=== PATIENT | female | born 1930 | race Caucasian/White ===

== ENCOUNTER 2016-11-26 08:04 | Inpatient (IN) | payer MEDICARE ==
[2016-11-26] VITALS (19 sets, daily range): BP systolic 141–193; BP diastolic 71–100
[~2016-11-26] VITALS: Ht 162.6 cm; Wt 43.6 kg
[~2016-11-26 08:04] MED LIST: ACET1TAB33 PO; ALPR0.5T6 PO; FAMO20TA5 PO; FLUO40CA9 PO; FLUT9.9S NS; LOSA50TA6 PO; METO25TA2 PO; PROAIR HFA8.5 GM IH
--- NOTE | 2016-11-26 08:32 | RAD ---
CT of the head without contrast, 11/26/2016: History: CVA symptoms Comparison is made to a study from 10/01/2016. The patient's head is somewhat rotated. There is mild cerebral atrophy, worse on the left. The ventricles are within normal limits in size. There is no shift of the midline structures. There is no evidence of acute intracranial hemorrhage. Right cerebellar lucencies are unchanged and are compatible with an old infarct. There is a tiny unchanged lucency along the lateral aspect of left basal ganglia compatible with lacunar infarct. There are minimal deep white matter lucencies on the left compatible with chronic ischemic change. IMPRESSION: 1. Chronic findings as described above. 2. No significant change since 10/01/2016. Note: The findings were called to personnel in the [facility] ER at 8:29 AM on 11/26/2016. PQRS Compliance Statement: One or more of the following individualized dose reduction techniques were utilized for this examination: 1. Automated exposure control 2. Adjustment of the mA and/or kV according to patient size 3. Use of iterative reconstruction technique
[2016-11-26 09:08] LABS: BASO % 0 % (0-3); EOS % 2 % (0-3); HEMATOCRIT 34.7 % (36.0-47.0); HEMOGLOBIN 11.7 g/dL (12.0-15.5); LYMPH # 0.7 x10^3/uL (1.0-4.8); LYMPH % 7 % (24-48); MEAN CORPUSCULAR HEMOGLOBIN 31 pg (25-35); MEAN CORPUSCULAR HGB CONC 34 g/dL (31-37); MEAN CORPUSCULAR VOLUME 91 fL (79-100); MONO % 8 % (0-9); NEUT % 83 % (31-73); PLATELET COUNT 207 x10^3/uL (140-400); RED BLOOD COUNT 3.79 x10^6/uL (3.50-5.40); RED CELL DISTRIBUTION WIDTH 12.9 % (11.5-14.5); WHITE BLOOD COUNT 10.5 x10^3/uL (4.0-11.0)
[2016-11-26] MEDS ORDERED: IV NORMAL SALINE 50ML 50 ML IV STA (09:22)
[2016-11-26] MEDS ORDERED: LABETALOL 20 MG/4 ML DISP.SYRIN. IV PRN (09:30)
[2016-11-26] MEDS ORDERED: NICARDIPINE HCL 50 MG in IV NORMAL SALINE 250ML 250 ML IV PRN (09:30)
[2016-11-26] MEDS ORDERED: ALTEPLASE IV ONE ×2 (09:30)
[2016-11-26] MEDS ORDERED: ONDANSETRON PF 4 MG/2 ML VIAL. IV PRN ×2 (09:30→13:45)
[2016-11-26 09:34] LABS: INR 1.4 (0.8-1.1); PROTHROMBIN TIME PATIENT 16.3 SEC (11.7-14.0)
[2016-11-26 09:38] LABS: ALBUMIN 3.1 g/dL (3.4-5.0); ALBUMIN/GLOBULIN RATIO 0.9 (1.0-1.7); CALCIUM 8.8 mg/dL (8.5-10.1); GFR 52.4; POTASSIUM 3.4 mmol/L (3.5-5.1); TOTAL BILIRUBIN 0.8 mg/dL (0.2-1.0); TOTAL PROTEIN 6.4 g/dL (6.4-8.2)
--- NOTE | 2016-11-26 10:20 | EKG ---
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
--- NOTE | 2016-11-26 10:36 | PHYS DOC ---
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 Patient came down for breakfast from the long term and suddenly dropped a cup with her left hand in the long term staff noticed that she was not looking to the left or not moving the left side of her body. Patient is unable to provide any history. There is not been any known trauma. At this point, the family is unsure what medications she is taking. [] Review of Systems Review of Systems Constitutional: Denies fever or chills [] Eyes: Denies change in visual acuity, redness, or eye pain [] HENT: Denies nasal congestion or sore throat [] Respiratory: Denies cough or shortness of breath [] Cardiovascular: No additional information not addressed in HPI [] GI: Denies abdominal pain, nausea, vomiting, bloody stools or diarrhea [] : Denies dysuria or hematuria [] Musculoskeletal: Denies back pain or joint pain [] Integument: Denies rash or skin lesions [] Neurologic: Per history of present illness [] Endocrine: Denies polyuria or polydipsia [] Current Medications Current Medications Current Medications Medications (Trade) Dose Ordered Sig/Dane Start Time Stop Time Status Last Admin Dose Admin Alteplase, Recombinant 0 ml @ 38.2 mls/hr 1X ONCE 11/26/16 09:30 11/26/16 09:31 DC 11/26/16 09:51 38.2 MLS/HR Labetalol HCl 10 mg 10 mg PRN Q10MIN PRN 11/26/16 09:30 11/26/16 12:15 10 MG Nicardipine HCl/ Sodium Chloride (Cardene/Iv Sodium Chloride 0.9% 250ml) 270 ml @ 27 mls/hr CONT PRN PRN 11/26/16 09:30 Ondansetron HCl (Zofran) 4 mg PRN Q8HRS PRN 11/26/16 09:30 11/27/16 09:29 Sodium Chloride (Iv Sodium Chloride 0.9% 50ml) 50 ml @ 25 mls/min ONCE STAT 11/26/16 09:22 11/26/16 09:33 DC 11/26/16 09:51 25 MLS/MIN Allergies Allergies Allergies Coded Allergies Type Severity Reaction Last Updated Verified Cephalosporins Allergy Intermediate 09/29/16 Yes Penicillins Allergy Intermediate 09/29/16 Yes Sulfa (Sulfonamide Antibiotics) Allergy Intermediate 09/29/16 Yes celecoxib Allergy Intermediate 09/28/16 Yes egg Allergy Intermediate 09/28/16 Yes hydrocodone Allergy Intermediate Itching 09/28/16 Yes Physical Exam Physical Exam Constitutional: Well developed, well nourished, no acute distress, non-toxic appearance. [] HENT: Normocephalic, atraumatic, bilateral external ears normal, oropharynx moist, no oral exudates, nose normal. [] Eyes: PERRLA, EOMI, conjunctiva normal, no discharge. [] Neck: Normal range of motion, no tenderness, supple, no stridor. [] Cardiovascular:Heart rate regular rhythm, no murmur [] Lungs & Thorax: Bilateral breath sounds clear to auscultation [] Abdomen: Bowel sounds normal, soft, no tenderness, no masses, no pulsatile masses. [] Skin: Warm, dry, no erythema, no rash. [] Back: No tenderness, no CVA tenderness. [] Extremities: No tenderness, no cyanosis, no clubbing, ROM intact, no edema. [] Neurologic: Alert and oriented X 3, normal motor function, normal sensory function, no focal deficits noted. [] Psychologic: Affect normal, judgement normal, mood normal. [] Current Patient Data Vital Signs Vital Signs Date Time Temp Pulse Resp B/P Pulse Ox O2 Delivery O2 Flow Rate FiO2 11/26/16 08:25 97.8 86 20 180/82 96 Room Air 97.8 Lab Values Laboratory Tests Test 11/26/16 09:00 White Blood Count 10.5x10^3/uL (4.0-11.0) Red Blood Count 3.79x10^6/uL (3.50-5.40) Hemoglobin 11.7g/dL (12.0-15.5) L Hematocrit 34.7% (36.0-47.0) L Mean Corpuscular Volume 91fL (79-100) Mean Corpuscular Hemoglobin 31pg (25-35) Mean Corpuscular Hemoglobin Concent 34g/dL (31-37) Red Cell Distribution Width 12.9% (11.5-14.5) Platelet Count 207x10^3/uL (140-400) Neutrophils (%) (Auto) 83% (31-73) H Lymphocytes (%) (Auto) 7% (24-48) L Monocytes (%) (Auto) 8% (0-9) Eosinophils (%) (Auto) 2% (0-3) Basophils (%) (Auto) 0% (0-3) Neutrophils # (Auto) 8.7x10^3uL (1.8-7.7) H Lymphocytes # (Auto) 0.7x10^3/uL (1.0-4.8) L Monocytes # (Auto) 0.8x10^3/uL (0.0-1.1) Eosinophils # (Auto) 0.2x10^3/uL (0.0-0.7) Basophils # (Auto) 0.0x10^3/uL (0.0-0.2) Prothrombin Time 16.3SEC (11.7-14.0) H Prothrombin Time INR 1.4 (0.8-1.1) H PTT 29SEC (24-38) Sodium Level 137mmol/L (136-145) Potassium Level 3.4mmol/L (3.5-5.1) L Chloride Level 97mmol/L (98-107) L Carbon Dioxide Level 31mmol/L (21-32) Anion Gap 9 (6-14) Blood Urea Nitrogen 18mg/dL (7-20) Creatinine 1.0mg/dL (0.6-1.0) Estimated GFR (Cockcroft-Gault) 52.4 BUN/Creatinine Ratio 18 (6-20) Glucose Level 160mg/dL (70-99) H Calcium Level 8.8mg/dL (8.5-10.1) Total Bilirubin 0.8mg/dL (0.2-1.0) Aspartate Amino Transferase (AST) 32U/L (15-37) Alanine Aminotransferase (ALT) 32U/L (14-59) Alkaline Phosphatase 193U/L (46-116) H Total Protein 6.4g/dL (6.4-8.2) Albumin 3.1g/dL (3.4-5.0) L Albumin/Globulin Ratio 0.9 (1.0-1.7) L Laboratory Tests 11/26/16 09:00 Laboratory Tests 11/26/16 09:00 EKG EKG [EKG: Normal sinus rhythm rate of [address]-T changes] Radiology/Procedures Radiology/Procedures [] Impressions: PROCEDURE: HEAD WO CONTRAST CT of the head without contrast, 11/26/2016: History: CVA symptoms Comparison is made to a study from 10/01/2016. The patient's head is somewhat rotated. There is mild cerebral atrophy, worse on the left. The ventricles are within normal limits in size. There is no shift of the midline structures. There is no evidence of acute intracranial hemorrhage. Right cerebellar lucencies are unchanged and are compatible with an old infarct. There is a tiny unchanged lucency along the lateral aspect of left basal ganglia compatible with lacunar infarct. There are minimal deep white matter lucencies on the left compatible with chronic ischemic change. IMPRESSION: 1. Chronic findings as described above. 2. No significant change since 10/01/2016. Course & Med Decision Making Course & Med Decision Making Pertinent Labs and Imaging studies reviewed. (See chart for details) [ED course: Evaluation reveals an 86-year-old female with profound left taye- neglect and hemiparesis. Immediately after arrival I discussed the case with Dr. Kian Fenton and given the fact that she had a recent stroke with such a significant deficit we entertained the thought of transfer to a capable stroke center to perform thrombectomy. I discussed this option with family and they were not in favor of transfer or any sort of an interventional treatment. We then discussed the risk of alteplase and the family was willing to go forward with medical intervention. They were warned that there is a relative contraindication to TPA given the fact that she's had a recent stroke but the family was willing to proceed with the procedure. There was a slight delay in starting the TPA because of the prolonged conversation with the family. CRITICAL CARE time was 30 minutes - time exclusive of any procedures performed. Care included medical management, x-ray/lab interpretation, discussions with the patient and their family as well as appropriate medical consultants. Dragon Disclaimer Dragon Disclaimer This electronic medical record was generated, in whole or in part, using a voice recognition dictation system. Departure Departure Impression: Primary Impression: CVA (cerebral vascular accident) Disposition: 09 ADMITTED INPATIENT Admitting Physician: Reed Gomez Condition: STABLE Referrals: JOE MOY MD (PCP) NIHSS NIHSS Administer stroke scale items in the order listed. Record performance in each category after each subscale exam. Do not go back and change scores. Follow directions provided for each exam technique. Scores should reflect what the patient does, not what the clinician thinks the patient can do. The clinician should record answers while administering the exam and work quickly. Except where indicated, the patient should not be coached (i.e., repeated requests to patient to make a special effort). 1a. Level of Consciousness: The reference investigator must choose a response if a full evaluation is prevented by such obstacles as an endotracheal tube, language barrier, orotracheal trauma/bandages. A 3 is scored only if the patient makes no movement (other than reflexive posturing) in response to noxious stimulation. 0 = Alert; keenly responsive. 1 = Not alert; but arousable by minor stimulation to obey, answer, or respond. 2 = Not alert; requires repeated stimulation to attend, or is obtunded and requires strong or painful stimulation to make movements (not stereotyped). 3 = Responds only with reflex motor or autonomic effects or totally unresponsive, flaccid, and areflexic. 1b. LOC Questions: The patient is asked the month and his/her age. The answer must be correct - there is no partial credit for being close. Aphasic and stuporous patients who do not comprehend the questions will score 2. Patients unable to speak because of endotracheal intubation, orotracheal trauma, severe dysarthria from any cause, language barrier, or any other problem not secondary to aphasia are given a 1. It is important that only the initial answer be graded and that the examiner not "help" the patient with verbal or non-verbal cues. 0 = Answers both questions correctly. 1 = Answers one question correctly. 2 = Answers neither question correctly. 1c. LOC Commands: The patient is asked to open and close the eyes and then to event sales manager and release the non-paretic hand. Substitute another one step command if the hands cannot be used. Credit is given if an unequivocal attempt is made but not completed due to weakness. If the patient does not respond to command, the task should be demonstrated to him or her (pantomime), and the result scored (i.e., follows none, one or two commands). Patients with trauma, amputation, or other physical impediments should be given suitable one-step commands. Only the first attempt is scored. 0 = Performs both tasks correctly. 1 = Performs one task correctly. 2 = Performs neither task correctly. 2. Best Gaze: Only horizontal eye movements will be tested. Voluntary or reflexive (oculocephalic) eye movements will be scored, but caloric testing is not done. If the patient has a conjugate deviation of the eyes that can be overcome by voluntary or reflexive activity, the score will be 1. If a patient has an isolated peripheral nerve paresis (CN III, IV or ), score a 1. Gaze is testable in all aphasic patients. Patients with ocular trauma, bandages, pre-existing blindness, or other disorder of visual acuity or witt should be tested with reflexive movements, and a choice made by the reference investigator. Establishing eye contact and then moving about the patient from side to side will occasionally clarify the presence of a partial gaze palsy. 0 = Normal. 1 = Partial gaze palsy; gaze is abnormal in one or both eyes, but forced deviation or total gaze paresis is not present. 2 = Forced deviation, or total gaze paresis not overcome by the oculocephalic maneuver. Interval: [ ] Baseline [ ] 2 hours post treatment [ ] 24 hours post onset of symptoms 20 minutes [ ] 7-10 days [ ] 3 months [ ] Other ( ) 3. Visual: Visual witt (upper and lower quadrants) are tested by confrontation, using finger counting or visual threat, as appropriate. Patients may be encouraged, but if they look at the side of the moving fingers appropriately, this can be scored as normal. If there is unilateral blindness or enucleation, visual witt in the remaining eye are scored. Score 1 only if a clear-cut asymmetry, including quadrantanopia, is found. If patient is blind from any cause, score 3. Double simultaneous stimulation is performed at this point. If there is extinction, patient receives a 1, and the results are used to respond to item 11. 0 = No visual loss. 1 = Partial hemianopia. 2 = Complete hemianopia. 3 = Bilateral hemianopia (blind including cortical blindness). 4. Facial Palsy: Ask - or use pantomime to encourage - the patient to show teeth or raise eyebrows and close eyes. Score symmetry of grimace in response to noxious stimuli in the poorly responsive or non-comprehending patient. If facial trauma/bandages, orotracheal tube, tape or other physical barriers obscure the face, these should be removed to the extent possible. 0 = Normal symmetrical movements. 1 = Minor paralysis (flattened nasolabial fold, asymmetry on smiling). 2 = Partial paralysis (total or near-total paralysis of lower face). 3 = Complete paralysis of one or both sides (absence of facial movement in the upper and lower face). 5. Motor Arm: The limb is placed in the appropriate position: extend the arms (palms down) 90 degrees (if sitting) or 45 degrees (if supine). Drift is scored if the arm falls before 10 seconds. The aphasic patient is encouraged using urgency in the voice and pantomime, but not noxious stimulation. Each limb is tested in turn, beginning with the non-paretic arm. Only in the case of amputation or joint fusion at the shoulder, the examiner should record the score as untestable (UN), and clearly write the explanation for this choice. 0 = No drift; limb holds 90 (or 45) degrees for full 10 seconds. 1 = Drift; limb holds 90 (or 45) degrees, but drifts down before full 10 seconds ; does not hit bed or other support. 2 = Some effort against gravity; limb cannot get to or maintain (if cued) 90 ( or 45) degrees, drifts down to bed, but has some effort against gravity. 3 = No effort against gravity; limb falls. 4 = No movement. UN = Amputation or joint fusion, explain: 5a. Left Arm 5b. Right Arm 6. Motor Leg: The limb is placed in the appropriate position: hold the leg at 30 degrees (always tested supine). Drift is scored if the leg falls before 5 seconds. The aphasic patient is encouraged using urgency in the voice and pantomime, but not noxious stimulation. Each limb is tested in turn, beginning with the non-paretic leg. Only in the case of amputation or joint fusion at the hip, the examiner should record the score as untestable (UN), and clearly write the explanation for this choice. 0 = No drift; leg holds 30-degree position for full 5 seconds. 1 = Drift; leg falls by the end of the 5-second period but does not hit bed. 2 = Some effort against gravity; leg falls to bed by 5 seconds, but has some effort against gravity. 3 = No effort against gravity; leg falls to bed immediately. 4 = No movement. UN = Amputation or joint fusion, explain: 6a. Left Leg 6b. Right Leg Interval: [ ] Baseline [ ] 2 hours post treatment [ ] 24 hours post onset of symptoms 20 minutes [ ] 7-10 days [ ] 3 months [ ] Other ( ) 7. Limb Ataxia: This item is aimed at finding evidence of a unilateral cerebellar lesion. Test with eyes open. In case of visual defect, ensure testing is done in intact visual field. The fdljzv-[id number] and heel-blanc tests are performed on both sides, and ataxia is scored only if present out of proportion to weakness. Ataxia is absent in the patient who cannot understand or is paralyzed. Only in the case of amputation or joint fusion, the examiner should record the score as untestable (UN), and clearly write the explanation for this choice. In case of blindness, test by having the patient touch nose from extended arm position. 0 = Absent. 1 = Present in one limb. 2 = Present in two limbs. UN = Amputation or joint fusion, explain: 8. Sensory: Sensation or grimace to pinprick when tested, or withdrawal from noxious stimulus in the obtunded or aphasic patient. Only sensory loss attributed to stroke is scored as abnormal and the examiner should test as many body areas (arms [not hands], legs, trunk, face) as needed to accurately check for hemisensory loss. A score of 2, "severe or total sensory loss," should only be given when a severe or total loss of sensation can be clearly demonstrated. Stuporous and aphasic patients will, therefore, probably score 1 or 0. The patient with brainstem stroke who has bilateral loss of sensation is scored 2. If the patient does not respond and is quadriplegic, score 2. Patients in a coma (item 1a=3) are automatically given a 2 on this item. 0 = Normal; no sensory loss. 1 = Isei-ny-sydeskur sensory loss; patient feels pinprick is less sharp or is dull on the affected side; or there is a loss of superficial pain with pinprick , but patient is aware of being touched. 2 = Severe to total sensory loss; patient is not aware of being touched in the face, arm, and leg. 9. Best Language: A great deal of information about comprehension will be obtained during the preceding sections of the examination. For this scale item, the patient is asked to describe what is happening in the attached picture, to name the items on the attached naming sheet and to read from the attached list of sentences. Comprehension is judged from responses here, as well as to all of the commands in the preceding general neurological exam. If visual loss interferes with the tests, ask the patient to identify objects placed in the hand, repeat, and produce speech. The intubated patient should be asked to write. The patient in a coma (item 1a=3) will automatically score 3 on this item. The examiner must choose a score for the patient with stupor or limited cooperation, but a score of 3 should be used only if the patient is mute and follows no one-step commands. 0 = No aphasia; normal. 1 = Llsp-ax-qqrltiel aphasia; some obvious loss of fluency or facility of comprehension, without significant limitation on ideas expressed or form of expression. Reduction of speech and/or comprehension, however, makes conversation about provided materials difficult or impossible. For example, in conversation about provided materials, examiner can identify picture or naming card content from patient's response. 2 = Severe aphasia; all communication is through fragmentary expression; great need for inference, questioning, and guessing by the listener. Range of information that can be exchanged is limited; listener carries burden of communication. Examiner cannot identify materials provided from patient response. 3 = Mute, global aphasia; no usable speech or auditory comprehension. 10. Dysarthria: If patient is thought to be normal, an adequate sample of speech must be obtained by asking patient to read or repeat words from the attached list. If the patient has severe aphasia, the clarity of articulation of spontaneous speech can be rated. Only if the patient is intubated or has other physical barriers to producing speech, the examiner should record the score as untestable (UN), and clearly write an explanation for this choice. Do not tell the patient why he or she is being tested. 0 = Normal. 1 = Kifw-yx-bjgjwlot dysarthria; patient slurs at least some words and, at worst , can be understood with some difficulty. 2 = Severe dysarthria; patient's speech is so slurred as to be unintelligible in the absence of or out of proportion to any dysphasia, or is mute/anarthric. UN = Intubated or other physical barrier, explain: Interval: [ ] Baseline [ ] 2 hours post treatment [ ] 24 hours post onset of symptoms 20 minutes [ ] 7-10 days [ ] 3 months [ ] Other ( ) 11. Extinction and Inattention (formerly Neglect): Sufficient information to identify neglect may be obtained during the prior testing. If the patient has a severe visual loss preventing visual double simultaneous stimulation, and the cutaneous stimuli are normal, the score is normal. If the patient has aphasia but does appear to attend to both sides, the score is normal. The presence of visual spatial neglect or anosagnosia may also be taken as evidence of abnormality. Since the abnormality is scored only if present, the item is never untestable. 0 = No abnormality. 1 = Visual, tactile, auditory, spatial, or personal inattention or extinction to bilateral simultaneous stimulation in one of the sensory modalities. 2 = Profound taye-inattention or extinction to more than one modality; does not recognize own hand or orients to only one side of space. Problem Qualifiers Primary Impression: CVA (cerebral vascular accident) CVA mechanism: embolism Precerebral and cerebral artery: middle cerebral artery Laterality of affected vessel: right Qualified Code: I63.411 - Cerebral infarction due to embolism of right middle cerebral artery MAYE SQUIRES DO Nov 26, 2016 10:36
[2016-11-26] MEDS ORDERED: MORPHINE SULFATE 2 MG/ML DISP.SYRIN. IV PRN (12:15)
--- NOTE | 2016-11-26 13:48 | PDOC1 ---
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 pt is seen in ICU, APHasia and not follow any commands. as per DOPA, pt's slurry speech was much better recently, able to walk with a walker, and from last stroke with right hand some rigidy and left side mild weakness was resolved. Patient came down for breakfast from the [facility] and suddenly dropped a cup with her left hand in the [facility] staff noticed that she was not looking to the left or not moving the left side of her body. Patient is unable to provide any history. There is not been any known trauma. At this point, the family is unsure what medications she is taking. [] Pt got TPA in ER. Past Medical History Cardiovascular: HTN, Hyperlipidemia CENTRAL NERVOUS SYSTEM: CVA Heme/Onc: Cancer Endocrine: Diabetes Past Surgical History Past Surgical History: Cholecystectomy, Hysterectomy, Colon Resection Family History Family History: Hypertension Social History Smoke: No ALCOHOL: none Drugs: None Current Problem List Problem List Problems Medical Problems: (1) CVA (cerebral vascular accident) Status: Acute Current Medications Current Medications Current Medications Medications (Trade) Dose Ordered Sig/Dane Start Time Stop Time Status Last Admin Dose Admin Alteplase, Recombinant 0 ml @ 38.2 mls/hr 1X ONCE 11/26/16 09:30 11/26/16 09:31 DC 11/26/16 09:51 38.2 MLS/HR Labetalol HCl 10 mg 10 mg PRN Q10MIN PRN 11/26/16 09:30 11/26/16 12:15 10 MG Morphine Sulfate 2 mg PRN Q2HR PRN 11/26/16 12:15 11/26/16 12:32 2 MG Nicardipine HCl/ Sodium Chloride (Cardene/Iv Sodium Chloride 0.9% 250ml) 270 ml @ 27 mls/hr CONT PRN PRN 11/26/16 09:30 Ondansetron HCl (Zofran) 4 mg PRN Q8HRS PRN 11/26/16 09:30 11/27/16 09:29 Sodium Chloride (Iv Sodium Chloride 0.9% 50ml) 50 ml @ 25 mls/min ONCE STAT 11/26/16 09:22 11/26/16 09:33 DC 11/26/16 09:51 25 MLS/MIN Allergies Allergies Allergies Coded Allergies Type Severity Reaction Last Updated Verified Cephalosporins Allergy Intermediate 09/29/16 Yes Penicillins Allergy Intermediate 09/29/16 Yes Sulfa (Sulfonamide Antibiotics) Allergy Intermediate 09/29/16 Yes celecoxib Allergy Intermediate 09/28/16 Yes egg Allergy Intermediate 09/28/16 Yes hydrocodone Allergy Intermediate Itching 09/28/16 Yes ROS Review of System CONSTITUTIONAL: No fever or chills EYES: No recent changes SKIN: No rash or itching CARDIOVASCULAR: No chest pain, syncope, palpitations, or edema RESPIRATORY: No SOB or cough GASTROINTESTINAL: No nausea, vomiting or abdominal pain NEUROLOGICAL: No headaches or weakness ENDOCRINE: No cold or heat intolerance GENITOURINARY: No urgency or frequency of urination MUSCULOSKELETAL: No back pain or joint pain LYMPHATICS: No enlarged lymph nodes PSYCHIATRIC: No anxiety or depression Physical Exam Physical Exam GEN.: No apparent distress. Alert , awake, not talk or answer questions nor follow commands. HEENT: Head is normocephalic, atraumatic NECK: Supple. LUNGS: Clear to auscultation. HEART: RRR, S1, S2 present. Peripheral pulses intact ABDOMEN: Soft, nontender. Positive bowel sounds. EXTREMITIES: Without any cyanosis. left side flaccid, can wig her bl toes. NEUROLOGIC: not talk nor follow commands PSYCHIATRIC: Normal affect, normal mood. SKIN: No ulcerations Vitals Vitals Vital Signs Date Time Temp Pulse Resp B/P Pulse Ox O2 Delivery O2 Flow Rate FiO2 11/26/16 13:00 96 151/77 94 Room Air 11/26/16 11:00 98.6 98.6 11/26/16 08:25 20 Labs Labs Laboratory Tests Test 11/26/16 09:00 White Blood Count 10.5x10^3/uL (4.0-11.0) Red Blood Count 3.79x10^6/uL (3.50-5.40) Hemoglobin 11.7g/dL (12.0-15.5) Hematocrit 34.7% (36.0-47.0) Mean Corpuscular Volume 91fL (79-100) Mean Corpuscular Hemoglobin 31pg (25-35) Mean Corpuscular Hemoglobin Concent 34g/dL (31-37) Red Cell Distribution Width 12.9% (11.5-14.5) Platelet Count 207x10^3/uL (140-400) Neutrophils (%) (Auto) 83% (31-73) Lymphocytes (%) (Auto) 7% (24-48) Monocytes (%) (Auto) 8% (0-9) Eosinophils (%) (Auto) 2% (0-3) Basophils (%) (Auto) 0% (0-3) Neutrophils # (Auto) 8.7x10^3uL (1.8-7.7) Lymphocytes # (Auto) 0.7x10^3/uL (1.0-4.8) Monocytes # (Auto) 0.8x10^3/uL (0.0-1.1) Eosinophils # (Auto) 0.2x10^3/uL (0.0-0.7) Basophils # (Auto) 0.0x10^3/uL (0.0-0.2) Prothrombin Time 16.3SEC (11.7-14.0) Prothromb Time International Ratio 1.4 (0.8-1.1) Activated Partial Thromboplast Time 29SEC (24-38) Sodium Level 137mmol/L (136-145) Potassium Level 3.4mmol/L (3.5-5.1) Chloride Level 97mmol/L (98-107) Carbon Dioxide Level 31mmol/L (21-32) Anion Gap 9 (6-14) Blood Urea Nitrogen 18mg/dL (7-20) Creatinine 1.0mg/dL (0.6-1.0) Estimated GFR (Cockcroft-Gault) 52.4 BUN/Creatinine Ratio 18 (6-20) Glucose Level 160mg/dL (70-99) Calcium Level 8.8mg/dL (8.5-10.1) Total Bilirubin 0.8mg/dL (0.2-1.0) Aspartate Amino Transf (AST/SGOT) 32U/L (15-37) Alanine Aminotransferase (ALT/SGPT) 32U/L (14-59) Alkaline Phosphatase 193U/L (46-116) Total Protein 6.4g/dL (6.4-8.2) Albumin 3.1g/dL (3.4-5.0) Albumin/Globulin Ratio 0.9 (1.0-1.7) Laboratory Tests Test 11/26/16 09:00 White Blood Count 10.5x10^3/uL (4.0-11.0) Red Blood Count 3.79x10^6/uL (3.50-5.40) Hemoglobin 11.7g/dL (12.0-15.5) Hematocrit 34.7% (36.0-47.0) Mean Corpuscular Volume 91fL (79-100) Mean Corpuscular Hemoglobin 31pg (25-35) Mean Corpuscular Hemoglobin Concent 34g/dL (31-37) Red Cell Distribution Width 12.9% (11.5-14.5) Platelet Count 207x10^3/uL (140-400) Neutrophils (%) (Auto) 83% (31-73) Lymphocytes (%) (Auto) 7% (24-48) Monocytes (%) (Auto) 8% (0-9) Eosinophils (%) (Auto) 2% (0-3) Basophils (%) (Auto) 0% (0-3) Neutrophils # (Auto) 8.7x10^3uL (1.8-7.7) Lymphocytes # (Auto) 0.7x10^3/uL (1.0-4.8) Monocytes # (Auto) 0.8x10^3/uL (0.0-1.1) Eosinophils # (Auto) 0.2x10^3/uL (0.0-0.7) Basophils # (Auto) 0.0x10^3/uL (0.0-0.2) Prothrombin Time 16.3SEC (11.7-14.0) Prothromb Time International Ratio 1.4 (0.8-1.1) Activated Partial Thromboplast Time 29SEC (24-38) Sodium Level 137mmol/L (136-145) Potassium Level 3.4mmol/L (3.5-5.1) Chloride Level 97mmol/L (98-107) Carbon Dioxide Level 31mmol/L (21-32) Anion Gap 9 (6-14) Blood Urea Nitrogen 18mg/dL (7-20) Creatinine 1.0mg/dL (0.6-1.0) Estimated GFR (Cockcroft-Gault) 52.4 BUN/Creatinine Ratio 18 (6-20) Glucose Level 160mg/dL (70-99) Calcium Level 8.8mg/dL (8.5-10.1) Total Bilirubin 0.8mg/dL (0.2-1.0) Aspartate Amino Transf (AST/SGOT) 32U/L (15-37) Alanine Aminotransferase (ALT/SGPT) 32U/L (14-59) Alkaline Phosphatase 193U/L (46-116) Total Protein 6.4g/dL (6.4-8.2) Albumin 3.1g/dL (3.4-5.0) Albumin/Globulin Ratio 0.9 (1.0-1.7) VTE Prophylaxis Ordered VTE Prophylaxis Devices: Yes VTE Pharmacological Prophylaxi: No Assessment/Plan Assessment/Plan 1. acute left side weakness with aphasia, 2/2 acute stroke likely 2. 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 HTN 4. gerd 5. migraines 6. mild malnutrition 7. hypokalemia plan: 1. neuro consult 2. brain MRI, echo, carotid US 3. keep BP <160/100 4. swallow eval 5. replete K npo for now ivf gi ppx ptot KAYKAY SHORE MD Nov 26, 2016 13:47
--- NOTE | 2016-11-26 14:40 | ACF ---
Admission Forms Criteria NEUROLOGY GRG Clinical Indications for Admission to Inpatient Care (Place ' X' for any and all applicable criteria): Hospital admission is needed for appropriate care of the patient because of ANY ONE of the following: [ ]I. New-onset or worsening altered mental status remaining after emergency or observation level care (as appropriate) (9)(10)(11) [ ]II. Severe TECHNOLOGY MANAGER infections or inflammatory conditions, including ANY ONE of the following(1)(2)(3): [ ]a) Intracranial abscess [ ]b) Spinal abscess or myelitis [ ]c) Tuberculous or other nonbacterial, nonviral TECHNOLOGY MANAGER infection(8) [ ]III. Encephalitis(1)(2)(3) [ ]IV. Status epilepticus or repetitive seizures not controlled with emergent treatment [A] (7)(8) [ ]V. Transient alteration in consciousness with high-risk etiology; examples include (12)(13): [ ]a) Cardiovascular source [ ]b) Cataplexy [ ]. Cerebral aneurysm requiring ANY ONE of the following(14): [ ]a) IV antihypertensives or vasoactive agents [ ]b) Sedation and analgesia for suspected leak [ ]c) Need for external ventricular drainage and cerebral perfusion pressure monitoring [ ]d) Emergent evaluation to determine need for surgical clipping or endovascular coiling by interventional radiology. If surgery is required ( Also use Craniotomy, Supratentorial, for Surgery of Bleeding Intracranial Aneurysm (for bleeding aneurysm) or Craniotomy, Supratentorial (for nonbleeding aneurysm) as appropriate. [ ]VII. Altered mental status that is severe or persistent(16) [ ]VIII New-onset severe neurologic findings requiring inpatient care; examples include: [ ]a) Papilledema [ ]b) Cerebral edema [ ]c) Mass effect on imaging [X]IX. New-onset severe neurologic symptom requiring inpatient care indicated by ANY ONE of the following: [X]a) Aphasia(15) [ ]b) Weakness (grade 3 or less) [ ]c) Paralysis (eg, hemiplegia) [ ]d) Spasticity(16) [ ]e) Ataxia(17) [ ]f) Amnesia(18) [ ]g) Involuntary movements(19) [ ]h) Vertigo [ ]i) Other severe neurologic symptom not treatable at alternative level of care (eg, observation care) [ ]X. Guillain-Stilwell syndrome(20) [ ]XI. Myasthenia gravis crisis or inpatient monitoring need as indicated by ANY ONE of the following(21): [ ]a) Inadequate airway protection [ ]b) Respiratory insufficiency requiring intubation or inpatient. monitoring [ ]c) Progressive dysphagia with failure to thrive [ ]d) Intensive treatment (eg, course of plasmapheresis) with inadequate outpatient situation to monitor patients status [ ]XII. Multiple sclerosis or other acute demyelinating disease requiring inpatient care as indicated by ANY ONE of the following (22)(23): [ ]a) Acute severe deterioration requiring inpatient treatment (eg, IV steroids, plasmapheresis, close observation) [ ]b) Acute complication requiring inpatient care (eg, sepsis, severe decubitus, aspiration) [ ]XIII. Intracranial hypertension (eg, pseudotumor cerebri) requiring inpatient care (eg, acute visual loss, inadequate oral intake) (24) [ ]XIV.Parkinson disease requiring inpatient care (Also use Optimal Recovery Care Criteria or General Recovery Criteria as appropriate) indicated by ANY ONE of the following(25): [ ]a) Infection (eg, aspiration pneumonia) not treatable at alternative level of care [ ]b) Volume depletion not responsive to emergency and observation care treatment (as appropriate) [ ]c) Life-threatening agitation or psychotic behavior not treatable on emergency, observation care, or alternative level (eg, residential) basis [ ]d) Severe medication withdrawal effects (eg, freezing, neuroleptic malignant syndrome) not responsive to emergency and observation care treatment (as appropriate) [ ]e) Other severe manifestation not treatable at alternative level of care [ ]XV.Amyotrophic lateral sclerosis with inpatient care needs as indicated by ANY ONE of the following(26): [ ]a) Acute complications requiring inpatient care (Use Optimal Recovery Care Criteria or General Recovery Criteria as appropriate); examples include: [ ]i) Aspiration pneumonia [ ]ii) Sepsis [ ]b) Dehydration or hypovolemia (not responsive to emergency and observation care treatment as appropriate) AND artificial support desired [ ]c) Inadequate airway protection AND artificial support desired [ ]d) Severe ventilatory insufficiency AND artificial support desired [ ]XVI.Severe myopathy, neuropathy, or other neuromuscular disease as indicated by ANY ONE of the following: [ ]a) New-onset severe diffuse weakness (eg, strength 3/5 or less) [ ]b) Severe dysphagia [ ]c) Dyspnea at rest or with minimal exertion (new) [ ]d) Inadequate airway protection [ ]e) Inadequate ventilation as indicated by ANY ONE of the following : [ ]i) Partial pressure of carbon dioxide greater than 44 mm Hg (5.9 kPa) (new) [ ]ii) Reduced peak expiratory flow rate (new) [ ]iii) Vital capacity less than 50% of predicted ( less than 15 mL/kg) [ ]iv) Peak inspiratory force less negative than -30 cm H20 (-2942 Pa) [ ]XVII.Complications of congenital or degenerative disease (eg, infection, seizures, dehydration, injury) not responsive to emergency and observation care treatment (as appropriate ) [C](16)(29)(30) [ ]XVIII.Suspected or confirmed nerve or muscle toxic injury, including ANY ONE of the following: [ ]a) Rhabdomyolysis(31) [ ]b) Botulism(32) [ ]c) Other severe toxin-induced sign or symptom [ ]XIX. Neurologic trauma requiring inpatient treatment (medical) indicated by ANY ONE of the following(33)(34): [ ]a) Vital signs or neurologic signs more frequently than every 4 hours [ ]b) Hyperosmolar therapy [ ]c) Respiratory monitoring [ ]d) Intracranial pressure monitoring and treatment [ ]e) Stabilization and immobilization device placement (eg, braces, body jacket) [ ]f) Intubation & mechanical ventilation for airway protection or therapeutic hyperventilation [ ]g) Other treatment or monitoring needed that requires inpatient level of care [ ]XX.Complications of neurologic devices (eg, ventricular shunt, neurostimulator) requiring ANY ONE of the following(35)(36): [ ]a) IV antibiotics with monitoring while awaiting culture results [ ]b) Monitoring for hydrocephalus [ ]XXI Vasculitis with ANY ONE of the following(4)(5): [ ]a) Altered mental status [ ]b) Psychosis [ ]c) Seizures [ ]XXII. Neurology condition and ALL of the following: [ ]a) Symptom or finding for which emergency and observation care have failed or are not considered appropriate (Use General Criteria: Observation Care as appropriate) [ ]b) Presence of ANY ONE of the following: [ ]i) A General Admission Criteria [ ]ii A Pediatric General Admission Criteria The original [facility] content created by Enriqueta Bazzi has been revised. The portions of the content which have been revised are identified through the use of italic text or in bold, and [facility] has neither reviewed nor approved the modified material. All other unmodified content is copyright [facility] Please see references footnoted in the original [facility] edition 2016 Admission Criteria Met?: Yes NOEMY ANDERSON Nov 26, 2016 14:40
[2016-11-26] MEDS: AA 3%/ELECTROLYTE-TPN SOLN/GLY 1,000 ML IV SCH (16:02)
[2016-11-26] MEDS: PANTOPRAZOLE IV PUSH 40 MG VIAL. IVP SCH (16:03)
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
--- NOTE | 2016-11-26 16:34 | CARD ---
APPROVED REPORT EXAM: Two-dimensional and M-mode echocardiogram with Doppler and color Doppler. Other Information Quality : GoodHR: 102bpm Rhythm : Tachycardia INDICATION Stroke 2D DIMENSIONS Left Atrium(2D)3.7 (1.6-4.0cm)IVSd1.0 (0.7-1.1cm) Aortic Root(2D)2.6 (2.0-3.7cm)LVDd3.7 (3.9-5.9cm) LVOT Diameter2.2 (1.8-2.4cm)PWd1.0 (0.7-1.1cm) LVDs2.3 (2.5-4.0cm)FS (%) 38.7 % SV40.7 mlLVEF(%)70.0 (>50%) Aortic Valve AoV Peak Sarabjit.161.2cm/sAoV VTI24.6cm AO Peak GR.10.4mmHgLVOT Peak Sarabjit.97.9cm/s AO Mean GR.4mmHgAVA (VMAX)2.30cm2 Mitral Valve MV E Axreknol11.3cm/sMV E Peak Gr.3mmHg MV DECEL [id number] A Mtsqqctn916.7cm/s MV E Mean Gr.1mmHgE/A Ratio0.6 MV A [id number] Pulmonary Valve PV Peak Mfwkqhzv988.6cm/s Pulmonary Vein S1 Xhmdjdkg59.8cm/sD2 Mcfilqjb13.9cm/s PVa [id number] LEFT VENTRICLE The left ventricle is normal size. There is normal left ventricular wall thickness. The left ventricu lar systolic function is normal and the ejection fraction is within normal range.The Ejection Fractio n is 65-70%. There is grossly normal LV segmental wall motion. Transmitral Doppler flow pattern is Gr fara I-abnormal relaxation pattern. No left ventricle thrombus noted on this study. There is no ventri cular septal defect visualized. RIGHT VENTRICLE The right ventricle is normal size. There is normal right ventricular wall thickness. The right ventr icular systolic function is normal. ATRIA The left atrium is mildly dilated. The right atrium size is normal. Injection of bubbles documented n o interatrial shunt. AORTIC VALVE The aortic valve is moderately calcified. Doppler and Color Flow revealed no significant aortic regur gitation. There is no significant aortic valvular stenosis. MITRAL VALVE The mitral valve leaflets are thickened. There is no evidence of mitral valve prolapse. There is no m itral valve stenosis. Doppler and Color Flow revealed no mitral valve regurgitation noted. TRICUSPID VALVE The tricuspid valve is normal in structure and function. Doppler and Color Flow revealed no tricuspid valve regurgitation noted. There is no tricuspid valve prolapse or vegetation. PULMONIC VALVE Doppler and Color Flow revealed no pulmonic valvular regurgitation. There is no pulmonic valvular elba nosis. GREAT VESSELS The aortic root is normal in size. The ascending aorta is normal in size. The IVC is normal in size a nd collapses >50% with inspiration. PERICARDIAL EFFUSION There is no evidence of significant pericardial effusion. Critical Notification Critical Value: No <Conclusion> The left ventricular systolic function is normal and the ejection fraction is within normal range.The Ejection Fraction is 65-70%. There is grossly normal LV segmental wall motion. Injection of bubbles documented no interatrial shunt.
--- NOTE | 2016-11-26 16:39 | RAD ---
INDICATION: Stroke COMPARISON: 09/28/2016 TECHNIQUE: Color, grayscale and doppler ultrasound images obtained of the carotid system bilaterally. Percent stenosis is estimated using criteria that correlates with NASCET methodology. FINDINGS: Peak systolic velocities are as follows in cm/s: Right Carotid System: CCA: 47 ICA: 80 ECA: 104 ICA/CCA Ratio 1.7 Left Carotid System: CCA: 77 ICA: 91 ECA: 101 ICA/CCA Ratio 1.2 Vertebral arteries are antegrade bilaterally. Scattered calcified plaque is seen bilaterally. IMPRESSION: 1. No hemodynamically significant stenosis of the internal carotid arteries bilaterally. 2. The patient does have moderate mixed plaque bilaterally.
[2016-11-27] VITALS (9 sets, daily range): BP systolic 186–205; BP diastolic 96–117
--- NOTE | 2016-11-27 08:08 | PDOC ---
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, field cut, but gaze palsy better Prior bilateral strokes Plan Await MRI of the brain DNR Tests, echocardiogram and carotid Dopplers, were repeated from 2 months ago, results unchanged Transfer to floor if MRI shows no hemorrhage Rehabilitation modalities Family is deciding about whether she should have a PEG Otherwise aim for comfort care Subjective None Objective Vital Signs Date Time Temp Pulse Resp B/P Pulse Ox O2 Delivery O2 Flow Rate FiO2 11/27/16 06:00 120 22 205/98 98 Venturi Mask 11/27/16 04:02 99.7 99.7 11/27/16 00:00 2.0 Intake and Output 11/27/16 07:00 Intake Total 88.2 ml Balance 88.2 ml Intake Oral 0 ml IV Total 88.2 ml # Voids 3 PHYSICAL EXAM Nonverbal, does not follow commands, eyes closed PERRL. EOMI. CN: Left central facial weakness. Muscle tone: Increased on right, decreased on left Muscle strength: Left hemiplegia, moves the right side a little bit DTR: 2+ Plantar reflex: Extensor Gait: not examined in bed. Sensory exam: no abnormal findings. No cerebellar signs elicited. Review of Relevant I have reviewed the following items francisca (where applicable) has been applied. Labs Laboratory Tests Test 11/26/16 09:00 11/26/16 17:15 White Blood Count 10.5x10^3/uL (4.0-11.0) Red Blood Count 3.79x10^6/uL (3.50-5.40) Hemoglobin 11.7g/dL (12.0-15.5) Hematocrit 34.7% (36.0-47.0) Mean Corpuscular Volume 91fL (79-100) Mean Corpuscular Hemoglobin 31pg (25-35) Mean Corpuscular Hemoglobin Concent 34g/dL (31-37) Red Cell Distribution Width 12.9% (11.5-14.5) Platelet Count 207x10^3/uL (140-400) Neutrophils (%) (Auto) 83% (31-73) Lymphocytes (%) (Auto) 7% (24-48) Monocytes (%) (Auto) 8% (0-9) Eosinophils (%) (Auto) 2% (0-3) Basophils (%) (Auto) 0% (0-3) Neutrophils # (Auto) 8.7x10^3uL (1.8-7.7) Lymphocytes # (Auto) 0.7x10^3/uL (1.0-4.8) Monocytes # (Auto) 0.8x10^3/uL (0.0-1.1) Eosinophils # (Auto) 0.2x10^3/uL (0.0-0.7) Basophils # (Auto) 0.0x10^3/uL (0.0-0.2) Prothrombin Time 16.3SEC (11.7-14.0) Prothromb Time International Ratio 1.4 (0.8-1.1) Activated Partial Thromboplast Time 29SEC (24-38) Sodium Level 137mmol/L (136-145) Potassium Level 3.4mmol/L (3.5-5.1) Chloride Level 97mmol/L (98-107) Carbon Dioxide Level 31mmol/L (21-32) Anion Gap 9 (6-14) Blood Urea Nitrogen 18mg/dL (7-20) Creatinine 1.0mg/dL (0.6-1.0) Estimated GFR (Cockcroft-Gault) 52.4 BUN/Creatinine Ratio 18 (6-20) Glucose Level 160mg/dL (70-99) Calcium Level 8.8mg/dL (8.5-10.1) Total Bilirubin 0.8mg/dL (0.2-1.0) Aspartate Amino Transf (AST/SGOT) 32U/L (15-37) Alanine Aminotransferase (ALT/SGPT) 32U/L (14-59) Alkaline Phosphatase 193U/L (46-116) Total Protein 6.4g/dL (6.4-8.2) Albumin 3.1g/dL (3.4-5.0) Albumin/Globulin Ratio 0.9 (1.0-1.7) Nasal Screen MRSA (PCR) Negative (Negative) Laboratory Tests Test 11/26/16 09:00 11/26/16 17:15 White Blood Count 10.5x10^3/uL (4.0-11.0) Red Blood Count 3.79x10^6/uL (3.50-5.40) Hemoglobin 11.7g/dL (12.0-15.5) Hematocrit 34.7% (36.0-47.0) Mean Corpuscular Volume 91fL (79-100) Mean Corpuscular Hemoglobin 31pg (25-35) Mean Corpuscular Hemoglobin Concent 34g/dL (31-37) Red Cell Distribution Width 12.9% (11.5-14.5) Platelet Count 207x10^3/uL (140-400) Neutrophils (%) (Auto) 83% (31-73) Lymphocytes (%) (Auto) 7% (24-48) Monocytes (%) (Auto) 8% (0-9) Eosinophils (%) (Auto) 2% (0-3) Basophils (%) (Auto) 0% (0-3) Neutrophils # (Auto) 8.7x10^3uL (1.8-7.7) Lymphocytes # (Auto) 0.7x10^3/uL (1.0-4.8) Monocytes # (Auto) 0.8x10^3/uL (0.0-1.1) Eosinophils # (Auto) 0.2x10^3/uL (0.0-0.7) Basophils # (Auto) 0.0x10^3/uL (0.0-0.2) Prothrombin Time 16.3SEC (11.7-14.0) Prothromb Time International Ratio 1.4 (0.8-1.1) Activated Partial Thromboplast Time 29SEC (24-38) Sodium Level 137mmol/L (136-145) Potassium Level 3.4mmol/L (3.5-5.1) Chloride Level 97mmol/L (98-107) Carbon Dioxide Level 31mmol/L (21-32) Anion Gap 9 (6-14) Blood Urea Nitrogen 18mg/dL (7-20) Creatinine 1.0mg/dL (0.6-1.0) Estimated GFR (Cockcroft-Gault) 52.4 BUN/Creatinine Ratio 18 (6-20) Glucose Level 160mg/dL (70-99) Calcium Level 8.8mg/dL (8.5-10.1) Total Bilirubin 0.8mg/dL (0.2-1.0) Aspartate Amino Transf (AST/SGOT) 32U/L (15-37) Alanine Aminotransferase (ALT/SGPT) 32U/L (14-59) Alkaline Phosphatase 193U/L (46-116) Total Protein 6.4g/dL (6.4-8.2) Albumin 3.1g/dL (3.4-5.0) Albumin/Globulin Ratio 0.9 (1.0-1.7) Nasal Screen MRSA (PCR) Negative (Negative) Medications Current Medications Alteplase, Recombinant 0 ml @ 0 mls/hr 1X ONCE IV Last administered on 09:50; Start 11/26/16 at 09:30; Stop 11/26/16 at 09:31; Status DC Alteplase, Recombinant 0 ml @ 38.2 mls/hr 1X ONCE IV Last administered on 09:51; Start 11/26/16 at 09:30; Stop 11/26/16 at 09:31; Status DC Sodium Chloride (Iv Sodium Chloride 0.9% 50ml) 50 ml @ 25 mls/min ONCE STAT IV Last administered on 11/26/16 09:51; Start 11/26/16 at 09:22; Stop 11/26/16 at 09:33; Status DC Labetalol HCl 10 mg 10 mg PRN Q10MIN PRN IV HYPERTENSION, SEE COMMENTS Last administered on 11/26/16 12:15; Start 11/26/16 at 09:30 Nicardipine HCl/ Sodium Chloride (Cardene/Iv Sodium Chloride 0.9% 250ml) 270 ml @ 27 mls/hr CONT PRN PRN IV HYPERTENSION, SEE COMMENTS; Start 11/26/16 at 09: 30 Ondansetron HCl (Zofran) 4 mg PRN Q8HRS PRN IV NAUSEA/VOMITING; Start 11/26/16 at 09:30; Stop 11/26/16 at 15:48; Status DC Morphine Sulfate 2 mg PRN Q2HR PRN IV PAIN Last administered on 11/26/16 12:32 ; Start 11/26/16 at 12:15 Pantoprazole Sodium 40 mg 40 mg DAILYAC IVP Last administered on 11/26/16 16: 03; Start 11/26/16 at 14:00 Amino Acids/ Glycerin/ Electrolytes (Procalamine) 1,000 ml @ 60 mls/hr [id number] IV Last administered on 11/26/16t 16:02; Start 11/26/16 at 13:45 Ondansetron HCl (Zofran) 4 mg PRN Q6HRS PRN IV NAUSEA/VOMITING; Start 11/26/16 at 13:45 Active Scripts Active Reported Flonase Allergy Relief (Fluticasone Propionate) 9.9 Ml [place].susp 2 Sprays NS DAILY Prozac (Fluoxetine Hcl) 40 Mg Capsule 1 Cap PO DAILY Proair Hfa Inhaler (Albuterol Sulfate) 8.5 Gm Hfa.aer.ad 2 Puff IH PRN Q4-6HRS Toprol Xl (Metoprolol Succinate) 25 Mg Tab.er.24h 1 Tab PO DAILY Acetaminophen-Cod #3 Tablet (Acetaminophen/Codeine Phosphate) 1 Each Tablet 1 Tab PO AFTRNOON Famotidine 20 Mg Tablet 1 Tab PO AFTRNOON Losartan Potassium 50 Mg Tablet 50 Mg PO DAILY Alprazolam 0.5 Mg Tablet 1 Tab PO BID Vitals/I & O Vital Sign - Last 24 Hours 11/26/16 11/26/16 11/26/16 11/26/16 08:25 09:00 09:30 09:50 Temp 97.8 97.8 Pulse 86 74 76 81 Resp 20 B/P 180/82 157/85 193/88 172/82 Pulse Ox 96 97 97 97 O2 Delivery Room Air Room Air Room Air Room Air 11/26/16 11/26/16 11/26/16 11/26/16 10:02 10:07 10:17 10:27 Pulse 80 78 81 Resp B/P 170/85 164/88 171/79 176/87 Pulse Ox 98 97 97 97 O2 Delivery Room Air Room Air Room Air Room Air 11/26/16 11/26/16 11/26/16 11/26/16 10:32 10:37 11:00 11:15 Temp 98.6 98.6 Pulse 94 Resp 16 B/P 171/88 191/90 141/91 Pulse Ox 98 97 96 O2 Delivery Room Air Room Air Room Air Room Air 11/26/16 11/26/16 11/26/16 11/26/16 11:15 11:30 11:45 12:00 Pulse 94 100 104 104 Resp 16 B/P 188/83 173/87 193/95 185/80 Pulse Ox 95 96 95 95 O2 Delivery Room Air Room Air Room Air Room Air 11/26/16 11/26/1617 11/26/16 12:15 12:15 12:30 12:45 Pulse 112 98 100 Resp 16 18 B/P 193/100 193/95 163/82 158/85 Pulse Ox 94 94 94 O2 Delivery Room Air Room Air Room Air 11/26/16 11/26/16 11/26/16 11/26/16 13:00 14:00 15:00 16:00 Pulse 96 102 102 Resp 16 18 B/P 151/77 143/71 156/74 Pulse Ox 94 95 95 O2 Delivery Room Air Room Air Room Air Room Air 11/26/16 11/26/16 11/26/16 11/26/16 16:00 17:00 18:00 19:00 Temp 98.6 98.6 Pulse 100 106 108 110 Resp 18 16 17 18 B/P 160/80 188/89 173/86 189/100 Pulse Ox 96 96 96 96 O2 Delivery Room Air Room Air Room Air Room Air 11/26/16 11/26/16 11/26/16 11/26/16 20:00 20:00 21:00 22:00 Temp 98.8 98.8 Pulse 110 108 118 Resp 18 18 20 B/P 184/97 182/96 186/95 Pulse Ox 95 94 94 O2 Delivery Room Air Room Air Room Air Nasal Cannula O2 Flow Rate 2.0 11/26/16 11/27/16 11/27/16 11/27/16 23:00 00:00 00:00 01:00 Temp 99.5 99.5 Pulse 118 118 120 Resp B/P 190/99 199/100 198/96 Pulse Ox 95 91 96 O2 Delivery Nasal Cannula Nasal Cannula Nasal Cannula Venturi Mask O2 Flow Rate 2.0 3.0 2.0 11/27/16 11/27/16 11/27/16 11/27/16 02:00 03:00 04:02 04:07 Temp 99.7 99.7 Pulse 120 122 120 Resp B/P 194/104 198/98 197/101 Pulse Ox 93 95 95 O2 Delivery Venturi Mask Venturi Mask Venturi Mask Venturi Mask 11/27/16 11/27/16 05:00 06:00 Pulse 120 120 Resp 22 22 B/P 193/99 205/98 Pulse Ox 95 98 O2 Delivery Venturi Mask Venturi Mask Intake and Output 11/26/16 11/26/16 11/27/16 15:00 23:00 07:00 Intake Total 88.2 ml 0 ml 0 ml Balance 88.2 ml 0 ml 0 ml VALENTÍN RAMACHANDRAN MD Nov 27, 2016 08:08
[2016-11-27 08:19] LABS: CHOLESTEROL/HDL RATIO 2.4
[2016-11-27] MEDS ORDERED: LABETALOL 20 MG/4 ML DISP.SYRIN. IV PRN (09:00)
[2016-11-27] MEDS: PANTOPRAZOLE IV PUSH 40 MG VIAL. IVP SCH (09:56)
[2016-11-27] MEDS: AA 3%/ELECTROLYTE-TPN SOLN/GLY 1,000 ML IV SCH (09:57)
--- NOTE | 2016-11-27 11:56 | RAD ---
PROCEDURE MRI of the brain without contrast 11/27/2016 HISTORY Stroke post tPA. TECHNIQUE Unenhanced T1 weighted sagittal and axial, T2 weighted axial and coronal and FLAIR, gradient echo and diffusion weighted axial images of the brain were obtained. FINDINGS Comparison is made to a CT scan of the head dated 11/26/2016. Additional comparison is made to the patient's previous MRI of the brain dated 10/02/2016. There is generalized parenchymal atrophy. Patchy, confluent and multiple focal areas of abnormally increased signal intensity are seen within the periventricular and subcortical white matter of both cerebral hemispheres on the FLAIR and T2 weighted images consistent with areas of small vessel ischemic disease. Old areas of infarction are seen involving the cerebellum, right greater than left. These measure 2 millimeters to 2.5 centimeters in size. A large wedge-shaped area of restricted diffusion is seen involving portions of the right temporal, occipital and right parietal lobes. This measures 10 x 4.1 x 8.8 centimeters in AP, transverse and craniocaudal dimensions. This is consistent with a right MCA distribution infarct. On the gradient echo images multiple areas of decreased signal intensity are seen within the area of infarction consistent with areas of hemorrhagic transformation. There is surrounding edema and associated mass effect. No midline shift is seen at this time. Several small scattered focal areas of restricted diffusion are seen involving the left parietal lobe which measure 2 to 4 millimeters in size. These are consistent with additional areas of acute ischemia/infarction. There is no surrounding edema or associated mass effect. A 7 millimeter area of restricted diffusion is seen involving the left cerebellar hemisphere, superiorly. This is consistent with an additional area of acute ischemia/infarction. There is no significant surrounding edema or associated mass effect. The paranasal sinuses are essentially clear. There are minimal bilateral mastoid effusions. Diminished arterial flow to the branches of the right middle cerebral artery are seen. IMPRESSION Large area of acute infarction is seen involving the right temporal/occipital/ parietal lobes. Areas of hemorrhagic transformation are seen. There is surrounding edema and associated mass effect without evidence of midline shift. Additional smaller areas of acute ischemia/infarction are seen involving the left cerebellum and left parietal lobe. The patient's nurse was notified of these findings. Electronically signed by: Guido Herndon MD (Nov 27, 2016 11:55:11)
--- NOTE | 2016-11-27 13:15 | PDOC ---
PROGRESS NOTES Chief Complaint Chief Complaint 1. acute left side weakness with aphasia, 2/2 acute stroke likely 2. 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 HTN 4. gerd 5. migraines 6. mild malnutrition 7. hypokalemia plan: 1. neuro consult 2. brain MRI done, bl acute ischemia stroke, large on Rt WITH hemarragic transformation, mass effect wo midline shift. echo, carotid US repeated , neg. 3. keep BP <180/110 4. swallow eval, npo 5. replete K ivf gi ppx ptot History of Present Illness History of Present Illness still not responding to me Vitals Vitals Vital Signs Date Time Temp Pulse Resp B/P Pulse Ox O2 Delivery O2 Flow Rate FiO2 11/27/16 08:00 Venturi Mask 11/27/16 06:00 120 22 205/98 98 11/27/16 04:02 99.7 99.7 11/27/16 00:00 2.0 Physical Exam Physical Exam closing eyes, not waking up for me Heart: Regular rate, Normal S1, Normal S2 Lungs: Clear Abdomen: Normal bowel sounds, Soft Extremities: No clubbing, No cyanosis Skin: No rashes Labs LABS Laboratory Tests Test 11/26/16 17:15 11/27/16 07:30 Nasal Screen MRSA (PCR) Negative (Negative) Triglycerides Level 132mg/dL (0-150) Cholesterol Level 174mg/dL (0-200) LDL Cholesterol, Calculated 75mg/dL (0-100) VLDL Cholesterol, Calculated 26mg/dL (0-40) HDL Cholesterol 73mg/dL (40-60) Cholesterol/HDL Ratio 2.4 Review of Systems Review of Systems no fever, chills, sob or chest pain Assessment and Plan Assessmemt and Plan Problems Medical Problems: (1) Acute CVA (cerebrovascular accident) Status: Acute (2) CVA (cerebral vascular accident) Status: Acute Problems: Comment Review of Relevant I have reviewed the following items francisca (where applicable) has been applied. Labs Laboratory Tests Test 11/26/16 09:00 11/26/16 17:15 11/27/16 07:30 White Blood Count 10.5x10^3/uL (4.0-11.0) Red Blood Count 3.79x10^6/uL (3.50-5.40) Hemoglobin 11.7g/dL (12.0-15.5) Hematocrit 34.7% (36.0-47.0) Mean Corpuscular Volume 91fL (79-100) Mean Corpuscular Hemoglobin 31pg (25-35) Mean Corpuscular Hemoglobin Concent 34g/dL (31-37) Red Cell Distribution Width 12.9% (11.5-14.5) Platelet Count 207x10^3/uL (140-400) Neutrophils (%) (Auto) 83% (31-73) Lymphocytes (%) (Auto) 7% (24-48) Monocytes (%) (Auto) 8% (0-9) Eosinophils (%) (Auto) 2% (0-3) Basophils (%) (Auto) 0% (0-3) Neutrophils # (Auto) 8.7x10^3uL (1.8-7.7) Lymphocytes # (Auto) 0.7x10^3/uL (1.0-4.8) Monocytes # (Auto) 0.8x10^3/uL (0.0-1.1) Eosinophils # (Auto) 0.2x10^3/uL (0.0-0.7) Basophils # (Auto) 0.0x10^3/uL (0.0-0.2) Prothrombin Time 16.3SEC (11.7-14.0) Prothromb Time International Ratio 1.4 (0.8-1.1) Activated Partial Thromboplast Time 29SEC (24-38) Sodium Level 137mmol/L (136-145) Potassium Level 3.4mmol/L (3.5-5.1) Chloride Level 97mmol/L (98-107) Carbon Dioxide Level 31mmol/L (21-32) Anion Gap 9 (6-14) Blood Urea Nitrogen 18mg/dL (7-20) Creatinine 1.0mg/dL (0.6-1.0) Estimated GFR (Cockcroft-Gault) 52.4 BUN/Creatinine Ratio 18 (6-20) Glucose Level 160mg/dL (70-99) Calcium Level 8.8mg/dL (8.5-10.1) Total Bilirubin 0.8mg/dL (0.2-1.0) Aspartate Amino Transf (AST/SGOT) 32U/L (15-37) Alanine Aminotransferase (ALT/SGPT) 32U/L (14-59) Alkaline Phosphatase 193U/L (46-116) Total Protein 6.4g/dL (6.4-8.2) Albumin 3.1g/dL (3.4-5.0) Albumin/Globulin Ratio 0.9 (1.0-1.7) Nasal Screen MRSA (PCR) Negative (Negative) Triglycerides Level 132mg/dL (0-150) Cholesterol Level 174mg/dL (0-200) LDL Cholesterol, Calculated 75mg/dL (0-100) VLDL Cholesterol, Calculated 26mg/dL (0-40) HDL Cholesterol 73mg/dL (40-60) Cholesterol/HDL Ratio 2.4 Laboratory Tests Test 11/26/16 17:15 11/27/16 07:30 Nasal Screen MRSA (PCR) Negative (Negative) Triglycerides Level 132mg/dL (0-150) Cholesterol Level 174mg/dL (0-200) LDL Cholesterol, Calculated 75mg/dL (0-100) VLDL Cholesterol, Calculated 26mg/dL (0-40) HDL Cholesterol 73mg/dL (40-60) Cholesterol/HDL Ratio 2.4 Medications Current Medications Alteplase, Recombinant 0 ml @ 0 mls/hr 1X ONCE IV Last administered on 09:50; Start 11/26/16 at 09:30; Stop 11/26/16 at 09:31; Status DC Alteplase, Recombinant 0 ml @ 38.2 mls/hr 1X ONCE IV Last administered on 09:51; Start 11/26/16 at 09:30; Stop 11/26/16 at 09:31; Status DC Sodium Chloride (Iv Sodium Chloride 0.9% 50ml) 50 ml @ 25 mls/min ONCE STAT IV Last administered on 11/26/16 09:51; Start 11/26/16 at 09:22; Stop 11/26/16 at 09:33; Status DC Labetalol HCl 10 mg 10 mg PRN Q10MIN PRN IV HYPERTENSION, SEE COMMENTS Last administered on 11/26/16 12:15; Start 11/26/16 at 09:30; Stop 11/27/16 at 08:59 ; Status DC Nicardipine HCl/ Sodium Chloride (Cardene/Iv Sodium Chloride 0.9% 250ml) 270 ml @ 27 mls/hr CONT PRN PRN IV HYPERTENSION, SEE COMMENTS; Start 11/26/16 at 09: 30 Ondansetron HCl (Zofran) 4 mg PRN Q8HRS PRN IV NAUSEA/VOMITING; Start 11/26/16 at 09:30; Stop 11/26/16 at 15:48; Status DC Morphine Sulfate 2 mg PRN Q2HR PRN IV PAIN Last administered on 11/26/16 12:32 ; Start 11/26/16 at 12:15 Pantoprazole Sodium 40 mg 40 mg DAILYAC IVP Last administered on 11/27/16 09: 56; Start 11/26/16 at 14:00 Amino Acids/ Glycerin/ Electrolytes (Procalamine) 1,000 ml @ 60 mls/hr [id number] IV Last administered on 11/27/16 09:57; Start 11/26/16 at 13:45 Ondansetron HCl (Zofran) 4 mg PRN Q6HRS PRN IV NAUSEA/VOMITING; Start 11/26/16 at 13:45 Labetalol HCl (Normodyne) 20 mg PRN Q10MIN PRN IV HYPERTENSION, SEE COMMENTS; Start 11/27/16 at 09:00 Active Scripts Active Reported Flonase Allergy Relief (Fluticasone Propionate) 9.9 Ml [place].susp 2 Sprays NS DAILY Prozac (Fluoxetine Hcl) 40 Mg Capsule 1 Cap PO DAILY Proair Hfa Inhaler (Albuterol Sulfate) 8.5 Gm Hfa.aer.ad 2 Puff IH PRN Q4-6HRS Toprol Xl (Metoprolol Succinate) 25 Mg Tab.er.24h 1 Tab PO DAILY Acetaminophen-Cod #3 Tablet (Acetaminophen/Codeine Phosphate) 1 Each Tablet 1 Tab PO AFTRNOON Famotidine 20 Mg Tablet 1 Tab PO AFTRNOON Losartan Potassium 50 Mg Tablet 50 Mg PO DAILY Alprazolam 0.5 Mg Tablet 1 Tab PO BID Vitals/I & O Vital Sign - Last 24 Hours 11/26/16 11/26/16 11/26/16 11/26/16 14:00 15:00 16:00 16:00 Temp 98.6 98.6 Pulse 102 102 100 Resp 16 18 18 B/P 143/71 156/74 160/80 Pulse Ox 95 95 96 O2 Delivery Room Air Room Air Room Air Room Air 11/26/16 11/26/16 11/26/16 11/26/16 17:00 18:00 19:00 20:00 Temp 98.8 98.8 Pulse 106 108 110 110 Resp 18 B/P 188/89 173/86 189/100 184/97 Pulse Ox 96 96 96 95 O2 Delivery Room Air Room Air Room Air Room Air 11/26/16 11/26/16 11/26/16 11/26/16 20:00 21:00 22:00 23:00 Pulse 108 118 118 Resp B/P 182/96 186/95 190/99 Pulse Ox 94 94 95 O2 Delivery Room Air Room Air Nasal Cannula Nasal Cannula O2 Flow Rate 2.0 2.0 11/27/16 11/27/16 11/27/16 11/27/16 00:00 00:00 01:00 02:00 Temp 99.5 99.5 Pulse 118 120 120 Resp B/P 199/100 198/96 194/104 Pulse Ox 91 96 93 O2 Delivery Nasal Cannula Nasal Cannula Venturi Mask Venturi Mask O2 Flow Rate 3.0 2.0 11/27/16 11/27/16 11/27/16 11/27/16 03:00 04:02 04:07 05:00 Temp 99.7 99.7 Pulse 122 120 120 Resp B/P 198/98 197/101 193/99 Pulse Ox 95 95 95 O2 Delivery Venturi Mask Venturi Mask Venturi Mask Venturi Mask 11/27/16 11/27/16 06:00 08:00 Pulse 120 Resp 22 B/P 205/98 Pulse Ox 98 O2 Delivery Venturi Mask Venturi Mask Intake and Output 11/26/16 11/26/16 11/27/16 15:00 23:00 07:00 Intake Total 88.2 ml 0 ml 0 ml Balance 88.2 ml 0 ml 0 ml KAYKAY SHORE MD Nov 27, 2016 13:15
--- NOTE | 2016-11-27 18:32 | PDOC2 ---
PALLIATIVE CARE Palliative Care Note Palliative Care Consult requested by Dr. Fenton to address goals of care Diagnosis: Bilateral CVA; HTN; GERD; recent CVA Patient unresponsive. Oxygen per mask Spoke with conner Kemp/DALE and conner Mathias. They are aware of patient's medical condition per Dr. Fenton's conversation this am. They do not feel she will improve. Patient had told family that she was "ready to go", "done" after she had suffered her mini strokes prior to this admission. They would like to focus on her comfort. Return to [facility] if possible, Discussed financial obligation--payment of room and board --$250/day. Family had been working on plan for her to remain at [facility]. Patient has not wanted a feeding tube and they would like to honor her wishes. 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 Her mary is strong and she is a member of the [employer] in [place]. Her white sugar supervisor of member of her voodoo have been here to visit. Confirmed Code Status: Outside the Hospital DNR/DNI form completed. Spoke with Marleen MATHEW who will assist with discharge plan Plan: Comfort care returning to [facility] with Hospice (no preference in agency) DNR/DNI BRITTNEY MAHMOOD Nov 27, 2016 18:32
[2016-11-28 05:14] LABS: BASO # 0.1 x10^3/uL (0.0-0.2); BASO % 0 % (0-3); EOS % 0 % (0-3); HEMATOCRIT 36.5 % (36.0-47.0); HEMOGLOBIN 11.9 g/dL (12.0-15.5); LYMPH # 0.7 x10^3/uL (1.0-4.8); LYMPH % 4 % (24-48); MEAN CORPUSCULAR HEMOGLOBIN 30 pg (25-35); MEAN CORPUSCULAR HGB CONC 33 g/dL (31-37); MEAN CORPUSCULAR VOLUME 91 fL (79-100); MONO % 7 % (0-9); NEUT % 89 % (31-73); PLATELET COUNT 239 x10^3/uL (140-400); RED BLOOD COUNT 4.02 x10^6/uL (3.50-5.40); RED CELL DISTRIBUTION WIDTH 13.1 % (11.5-14.5); WHITE BLOOD COUNT 18.1 x10^3/uL (4.0-11.0)
[2016-11-28 05:49] LABS: GFR 52.4; POTASSIUM 3.3 mmol/L (3.5-5.1)
[2016-11-28 06:26] LABS: PLT ESTIMATE ADEQUATE (ADEQUATE)
[2016-11-28 07:50] VITALS: BP 154/62
[2016-11-28] MEDS ORDERED: LORAZEPAM INTENSOL 2 MG/ML ORAL.CONC. SL PRN (11:00)
[2016-11-28] MEDS ORDERED: LABETALOL 20 MG/4 ML DISP.SYRIN. IVP PRN (11:00)
[2016-11-28] MEDS ORDERED: SCOPOLAMINE 1.5MG PATCH. TD SCH (11:00)
[2016-11-28] MEDS: PANTOPRAZOLE IV PUSH 40 MG VIAL. IVP SCH (11:06)
[2016-11-28] MEDS: MORPHINE SULFATE 20 MG/ML CONC SOLUTION. SL PRN ×2 (13:29→16:45)
--- NOTE | 2016-11-28 14:31 | PDOC ---
PROGRESS NOTES Chief Complaint Chief Complaint 1. acute left side weakness with aphasia, 2/2 acute stroke likely 2. 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 HTN 4. gerd 5. migraines 6. mild malnutrition 7. hypokalemia plan: 1. neuro consult 2. brain MRI done, bl acute ischemia stroke, large on Rt WITH hemarragic transformation, mass effect wo midline shift. echo, carotid US repeated , neg. 3. keep BP <180/110 4. swallow eval, npo 5. replete K ivf gi ppx ptot History of Present Illness History of Present Illness transferred out of [facility] Aphasic, no response, NPOI Does not follow or responds to family DNR [facility] has accepted but will only take once O2 requirments are less pt still requiring high O2 reqmts, on venti mask PLAN: Check CXR STart hospice bundle including scopolamine patch Procalamine has been dcd from icu dc cardene gtt Only supportive meds for comfort \dw whole family at bedside Vitals Vitals Vital Signs Date Time Temp Pulse Resp B/P Pulse Ox O2 Delivery O2 Flow Rate FiO2 11/28/16 13:29 90 Venturi Mask 9.0 11/28/16 07:50 99.1 72 20 154/62 99.1 Physical Exam Physical Exam closing eyes, not waking up for me Heart: Regular rate, Normal S1, Normal S2 Lungs: Clear Abdomen: Normal bowel sounds, Soft Extremities: No clubbing, No cyanosis Skin: No rashes Labs LABS Laboratory Tests Test 11/28/16 04:25 White Blood Count 18.1x10^3/uL (4.0-11.0) Red Blood Count 4.02x10^6/uL (3.50-5.40) Hemoglobin 11.9g/dL (12.0-15.5) Hematocrit 36.5% (36.0-47.0) Mean Corpuscular Volume 91fL (79-100) Mean Corpuscular Hemoglobin 30pg (25-35) Mean Corpuscular Hemoglobin Concent 33g/dL (31-37) Red Cell Distribution Width 13.1% (11.5-14.5) Platelet Count 239x10^3/uL (140-400) Neutrophils (%) (Auto) 89% (31-73) Lymphocytes (%) (Auto) 4% (24-48) Monocytes (%) (Auto) 7% (0-9) Eosinophils (%) (Auto) 0% (0-3) Basophils (%) (Auto) 0% (0-3) Neutrophils # (Auto) 16.0x10^3uL (1.8-7.7) Lymphocytes # (Auto) 0.7x10^3/uL (1.0-4.8) Monocytes # (Auto) 1.3x10^3/uL (0.0-1.1) Eosinophils # (Auto) 0.0x10^3/uL (0.0-0.7) Basophils # (Auto) 0.1x10^3/uL (0.0-0.2) Segmented Neutrophils % 92% (35-66) Lymphocytes % 3% (24-48) Monocytes % 5% (0-10) Platelet Estimate Adequate (ADEQUATE) Sodium Level 135mmol/L (136-145) Potassium Level 3.3mmol/L (3.5-5.1) Chloride Level 94mmol/L (98-107) Carbon Dioxide Level 29mmol/L (21-32) Anion Gap 12 (6-14) Blood Urea Nitrogen 36mg/dL (7-20) Creatinine 1.0mg/dL (0.6-1.0) Estimated GFR (Cockcroft-Gault) 52.4 Glucose Level 183mg/dL (70-99) Calcium Level 9.0mg/dL (8.5-10.1) Review of Systems Review of Systems cant be obtained, aphasic Assessment and Plan Assessmemt and Plan Problems Medical Problems: (1) Acute CVA (cerebrovascular accident) Status: Acute (2) CVA (cerebral vascular accident) Status: Acute Problems: Comment Review of Relevant I have reviewed the following items francisca (where applicable) has been applied. Labs Laboratory Tests Test 11/26/16 17:15 11/27/16 07:30 11/28/16 04:25 Nasal Screen MRSA (PCR) Negative (Negative) Triglycerides Level 132mg/dL (0-150) Cholesterol Level 174mg/dL (0-200) LDL Cholesterol, Calculated 75mg/dL (0-100) VLDL Cholesterol, Calculated 26mg/dL (0-40) HDL Cholesterol 73mg/dL (40-60) Cholesterol/HDL Ratio 2.4 White Blood Count 18.1x10^3/uL (4.0-11.0) Red Blood Count 4.02x10^6/uL (3.50-5.40) Hemoglobin 11.9g/dL (12.0-15.5) Hematocrit 36.5% (36.0-47.0) Mean Corpuscular Volume 91fL (79-100) Mean Corpuscular Hemoglobin 30pg (25-35) Mean Corpuscular Hemoglobin Concent 33g/dL (31-37) Red Cell Distribution Width 13.1% (11.5-14.5) Platelet Count 239x10^3/uL (140-400) Neutrophils (%) (Auto) 89% (31-73) Lymphocytes (%) (Auto) 4% (24-48) Monocytes (%) (Auto) 7% (0-9) Eosinophils (%) (Auto) 0% (0-3) Basophils (%) (Auto) 0% (0-3) Neutrophils # (Auto) 16.0x10^3uL (1.8-7.7) Lymphocytes # (Auto) 0.7x10^3/uL (1.0-4.8) Monocytes # (Auto) 1.3x10^3/uL (0.0-1.1) Eosinophils # (Auto) 0.0x10^3/uL (0.0-0.7) Basophils # (Auto) 0.1x10^3/uL (0.0-0.2) Segmented Neutrophils % 92% (35-66) Lymphocytes % 3% (24-48) Monocytes % 5% (0-10) Platelet Estimate Adequate (ADEQUATE) Sodium Level 135mmol/L (136-145) Potassium Level 3.3mmol/L (3.5-5.1) Chloride Level 94mmol/L (98-107) Carbon Dioxide Level 29mmol/L (21-32) Anion Gap 12 (6-14) Blood Urea Nitrogen 36mg/dL (7-20) Creatinine 1.0mg/dL (0.6-1.0) Estimated GFR (Cockcroft-Gault) 52.4 Glucose Level 183mg/dL (70-99) Calcium Level 9.0mg/dL (8.5-10.1) Laboratory Tests Test 11/28/16 04:25 White Blood Count 18.1x10^3/uL (4.0-11.0) Red Blood Count 4.02x10^6/uL (3.50-5.40) Hemoglobin 11.9g/dL (12.0-15.5) Hematocrit 36.5% (36.0-47.0) Mean Corpuscular Volume 91fL (79-100) Mean Corpuscular Hemoglobin 30pg (25-35) Mean Corpuscular Hemoglobin Concent 33g/dL (31-37) Red Cell Distribution Width 13.1% (11.5-14.5) Platelet Count 239x10^3/uL (140-400) Neutrophils (%) (Auto) 89% (31-73) Lymphocytes (%) (Auto) 4% (24-48) Monocytes (%) (Auto) 7% (0-9) Eosinophils (%) (Auto) 0% (0-3) Basophils (%) (Auto) 0% (0-3) Neutrophils # (Auto) 16.0x10^3uL (1.8-7.7) Lymphocytes # (Auto) 0.7x10^3/uL (1.0-4.8) Monocytes # (Auto) 1.3x10^3/uL (0.0-1.1) Eosinophils # (Auto) 0.0x10^3/uL (0.0-0.7) Basophils # (Auto) 0.1x10^3/uL (0.0-0.2) Segmented Neutrophils % 92% (35-66) Lymphocytes % 3% (24-48) Monocytes % 5% (0-10) Platelet Estimate Adequate (ADEQUATE) Sodium Level 135mmol/L (136-145) Potassium Level 3.3mmol/L (3.5-5.1) Chloride Level 94mmol/L (98-107) Carbon Dioxide Level 29mmol/L (21-32) Anion Gap 12 (6-14) Blood Urea Nitrogen 36mg/dL (7-20) Creatinine 1.0mg/dL (0.6-1.0) Estimated GFR (Cockcroft-Gault) 52.4 Glucose Level 183mg/dL (70-99) Calcium Level 9.0mg/dL (8.5-10.1) Medications Current Medications Alteplase, Recombinant 0 ml @ 0 mls/hr 1X ONCE IV Last administered on 09:50; Start 11/26/16 at 09:30; Stop 11/26/16 at 09:31; Status DC Alteplase, Recombinant 0 ml @ 38.2 mls/hr 1X ONCE IV Last administered on 09:51; Start 11/26/16 at 09:30; Stop 11/26/16 at 09:31; Status DC Sodium Chloride (Iv Sodium Chloride 0.9% 50ml) 50 ml @ 25 mls/min ONCE STAT IV Last administered on 11/26/16 09:51; Start 11/26/16 at 09:22; Stop 11/26/16 at 09:33; Status DC Labetalol HCl 10 mg 10 mg PRN Q10MIN PRN IV HYPERTENSION, SEE COMMENTS Last administered on 11/26/16 12:15; Start 11/26/16 at 09:30; Stop 11/27/16 at 08:59 ; Status DC Nicardipine HCl/ Sodium Chloride (Cardene/Iv Sodium Chloride 0.9% 250ml) 270 ml @ 27 mls/hr CONT PRN PRN IV HYPERTENSION, SEE COMMENTS; Start 11/26/16 at 09: 30; Stop 11/28/16 at 10:50; Status DC Ondansetron HCl (Zofran) 4 mg PRN Q8HRS PRN IV NAUSEA/VOMITING; Start 11/26/16 at 09:30; Stop 11/26/16 at 15:48; Status DC Morphine Sulfate 2 mg PRN Q2HR PRN IV PAIN Last administered on 11/26/16 12:32 ; Start 11/26/16 at 12:15 Pantoprazole Sodium 40 mg 40 mg DAILYAC IVP Last administered on 11/28/16 11: 06; Start 11/26/16 at 14:00 Amino Acids/ Glycerin/ Electrolytes (Procalamine) 1,000 ml @ 60 mls/hr [id number] IV Last administered on 11/27/16 09:57; Start 11/26/16 at 13:45; Stop at 14:53; Status DC Ondansetron HCl (Zofran) 4 mg PRN Q6HRS PRN IV NAUSEA/VOMITING; Start 11/26/16 at 13:45 Labetalol HCl (Normodyne) 20 mg PRN Q10MIN PRN IV HYPERTENSION, SEE COMMENTS; Start 11/27/16 at 09:00; Stop 11/28/16 at 10:50; Status DC Morphine Sulfate (Roxanol Conc) 20 mg PRN Q3HRS PRN SL PAIN Last administered on 11/28/16 13:29; Start 11/28/16 at 11:00 Lorazepam (Ativan Intensol) 2 mg PRN Q6HRS PRN SL ANXIETY / AGITATION; Start at 11:00 Scopolamine (Transderm-Scop) 1 patch Q3DAYS TD Last administered on 11/28/16 11:07; Start 11/28/16 at 11:00 Labetalol HCl (Normodyne) 20 mg PRN Q2HR PRN IVP HYPERTENSION, SEE COMMENTS; Start 11/28/16 at 11:00 Active Scripts Active Reported Flonase Allergy Relief (Fluticasone Propionate) 9.9 Ml [place].susp 2 Sprays NS DAILY Prozac (Fluoxetine Hcl) 40 Mg Capsule 1 Cap PO DAILY Proair Hfa Inhaler (Albuterol Sulfate) 8.5 Gm Hfa.aer.ad 2 Puff IH PRN Q4-6HRS Toprol Xl (Metoprolol Succinate) 25 Mg Tab.er.24h 1 Tab PO DAILY Acetaminophen-Cod #3 Tablet (Acetaminophen/Codeine Phosphate) 1 Each Tablet 1 Tab PO AFTRNOON Famotidine 20 Mg Tablet 1 Tab PO AFTRNOON Losartan Potassium 50 Mg Tablet 50 Mg PO DAILY Alprazolam 0.5 Mg Tablet 1 Tab PO BID Vitals/I & O Vital Sign - Last 24 Hours 11/27/16 11/27/16 11/28/16 11/28/16 19:00 23:00 07:50 08:00 Temp 99.0 99.0 99.1 99.0 99.0 99.1 Pulse 86 58 72 Resp 21 20 20 B/P 193/103 186/117 154/62 Pulse Ox 95 97 90 O2 Delivery Venturi Mask Venturi Mask Venturi Mask Venturi Mask O2 Flow Rate 9.0 9.0 9.0 9.0 11/28/16 13:29 Pulse Ox 90 O2 Delivery Venturi Mask O2 Flow Rate 9.0 Intake and Output 11/27/16 11/27/16 11/28/16 15:00 23:00 07:00 Intake Total 0 ml 0 ml Balance 0 ml 0 ml RUBÉN GO MD Nov 28, 2016 14:31
--- NOTE | 2016-11-28 16:48 | RAD ---
Indication CVA. Protocol study. A single view of the chest was obtained. Note is made of a previous examination 10/01/2016. There is no congestive heart failure. Tortuous thoracic aorta is noted. There is a retrocardiac density on the right. This is not apparent on the previous exam. Infiltrate or mass are not excluded. (Mass is felt less likely as no suggested parenchymal mass is apparent on the film 2 months previously) Follow-up imaging should be considered. The left hemithorax is clear. Significant pleural fluid is not seen. There is no pneumothorax. IMPRESSION: Possible mass or infiltrate at the right lung base medially
[2016-11-28 19:20] VITALS: BP 115/88
--- NOTE | 2016-11-28 22:29 | PDOC ---
PROGRESS NOTES Assessment 1. Stroke right hemisphere is quite extensive with some hemorrhagic conversion. Her neurologic examination reveals that she is now very lethargic. She does awaken with stimulation but does not follow command. If unstimulated she closes her eyes. She has a left hemiparesis. She had recent previous bilateral strokes. Prognosis for meaningful recovery is extremely poor. Plan 1. The family has switched the focus of care to comfort measures. I fully support this approach heading towards hospice. I will be available, if needed. Subjective Nonverbal Objective Vital Signs Date Time Temp Pulse Resp B/P Pulse Ox O2 Delivery O2 Flow Rate FiO2 11/28/16 22:05 93 Room Air 11/28/16 19:20 98.1 131 24 115/88 98.1 11/28/16 18:10 9.0 Intake and Output 11/28/16 07:00 Intake Total 0 ml Balance 0 ml Intake Oral 0 ml # Voids 3 PHYSICAL EXAM She appeared comfortable. Her eyes were closed. With stimulation the eyes would open. If unstimulated she would close her eyes. She did not follow command. There was increased tone on the left side more so than the right side. She did not have spontaneous movements. Review of Relevant I have reviewed the following items francisca (where applicable) has been applied. Labs Laboratory Tests Test 11/27/16 07:30 11/28/16 04:25 Triglycerides Level 132mg/dL (0-150) Cholesterol Level 174mg/dL (0-200) LDL Cholesterol, Calculated 75mg/dL (0-100) VLDL Cholesterol, Calculated 26mg/dL (0-40) HDL Cholesterol 73mg/dL (40-60) Cholesterol/HDL Ratio 2.4 White Blood Count 18.1x10^3/uL (4.0-11.0) Red Blood Count 4.02x10^6/uL (3.50-5.40) Hemoglobin 11.9g/dL (12.0-15.5) Hematocrit 36.5% (36.0-47.0) Mean Corpuscular Volume 91fL (79-100) Mean Corpuscular Hemoglobin 30pg (25-35) Mean Corpuscular Hemoglobin Concent 33g/dL (31-37) Red Cell Distribution Width 13.1% (11.5-14.5) Platelet Count 239x10^3/uL (140-400) Neutrophils (%) (Auto) 89% (31-73) Lymphocytes (%) (Auto) 4% (24-48) Monocytes (%) (Auto) 7% (0-9) Eosinophils (%) (Auto) 0% (0-3) Basophils (%) (Auto) 0% (0-3) Neutrophils # (Auto) 16.0x10^3uL (1.8-7.7) Lymphocytes # (Auto) 0.7x10^3/uL (1.0-4.8) Monocytes # (Auto) 1.3x10^3/uL (0.0-1.1) Eosinophils # (Auto) 0.0x10^3/uL (0.0-0.7) Basophils # (Auto) 0.1x10^3/uL (0.0-0.2) Segmented Neutrophils % 92% (35-66) Lymphocytes % 3% (24-48) Monocytes % 5% (0-10) Platelet Estimate Adequate (ADEQUATE) Sodium Level 135mmol/L (136-145) Potassium Level 3.3mmol/L (3.5-5.1) Chloride Level 94mmol/L (98-107) Carbon Dioxide Level 29mmol/L (21-32) Anion Gap 12 (6-14) Blood Urea Nitrogen 36mg/dL (7-20) Creatinine 1.0mg/dL (0.6-1.0) Estimated GFR (Cockcroft-Gault) 52.4 Glucose Level 183mg/dL (70-99) Calcium Level 9.0mg/dL (8.5-10.1) Laboratory Tests Test 11/28/16 04:25 White Blood Count 18.1x10^3/uL (4.0-11.0) Red Blood Count 4.02x10^6/uL (3.50-5.40) Hemoglobin 11.9g/dL (12.0-15.5) Hematocrit 36.5% (36.0-47.0) Mean Corpuscular Volume 91fL (79-100) Mean Corpuscular Hemoglobin 30pg (25-35) Mean Corpuscular Hemoglobin Concent 33g/dL (31-37) Red Cell Distribution Width 13.1% (11.5-14.5) Platelet Count 239x10^3/uL (140-400) Neutrophils (%) (Auto) 89% (31-73) Lymphocytes (%) (Auto) 4% (24-48) Monocytes (%) (Auto) 7% (0-9) Eosinophils (%) (Auto) 0% (0-3) Basophils (%) (Auto) 0% (0-3) Neutrophils # (Auto) 16.0x10^3uL (1.8-7.7) Lymphocytes # (Auto) 0.7x10^3/uL (1.0-4.8) Monocytes # (Auto) 1.3x10^3/uL (0.0-1.1) Eosinophils # (Auto) 0.0x10^3/uL (0.0-0.7) Basophils # (Auto) 0.1x10^3/uL (0.0-0.2) Segmented Neutrophils % 92% (35-66) Lymphocytes % 3% (24-48) Monocytes % 5% (0-10) Platelet Estimate Adequate (ADEQUATE) Sodium Level 135mmol/L (136-145) Potassium Level 3.3mmol/L (3.5-5.1) Chloride Level 94mmol/L (98-107) Carbon Dioxide Level 29mmol/L (21-32) Anion Gap 12 (6-14) Blood Urea Nitrogen 36mg/dL (7-20) Creatinine 1.0mg/dL (0.6-1.0) Estimated GFR (Cockcroft-Gault) 52.4 Glucose Level 183mg/dL (70-99) Calcium Level 9.0mg/dL (8.5-10.1) Medications Current Medications Alteplase, Recombinant 0 ml @ 0 mls/hr 1X ONCE IV Last administered on 09:50; Start 11/26/16 at 09:30; Stop 11/26/16 at 09:31; Status DC Alteplase, Recombinant 0 ml @ 38.2 mls/hr 1X ONCE IV Last administered on 09:51; Start 11/26/16 at 09:30; Stop 11/26/16 at 09:31; Status DC Sodium Chloride (Iv Sodium Chloride 0.9% 50ml) 50 ml @ 25 mls/min ONCE STAT IV Last administered on 11/26/16 09:51; Start 11/26/16 at 09:22; Stop 11/26/16 at 09:33; Status DC Labetalol HCl 10 mg 10 mg PRN Q10MIN PRN IV HYPERTENSION, SEE COMMENTS Last administered on 11/26/16 12:15; Start 11/26/16 at 09:30; Stop 11/27/16 at 08:59 ; Status DC Nicardipine HCl/ Sodium Chloride (Cardene/Iv Sodium Chloride 0.9% 250ml) 270 ml @ 27 mls/hr CONT PRN PRN IV HYPERTENSION, SEE COMMENTS; Start 11/26/16 at 09: 30; Stop 11/28/16 at 10:50; Status DC Ondansetron HCl (Zofran) 4 mg PRN Q8HRS PRN IV NAUSEA/VOMITING; Start 11/26/16 at 09:30; Stop 11/26/16 at 15:48; Status DC Morphine Sulfate 2 mg PRN Q2HR PRN IV PAIN Last administered on 11/26/16 12:32 ; Start 11/26/16 at 12:15 Pantoprazole Sodium 40 mg 40 mg DAILYAC IVP Last administered on 11/28/16 11: 06; Start 11/26/16 at 14:00 Amino Acids/ Glycerin/ Electrolytes (Procalamine) 1,000 ml @ 60 mls/hr [id number] IV Last administered on 11/27/16 09:57; Start 11/26/16 at 13:45; Stop at 14:53; Status DC Ondansetron HCl (Zofran) 4 mg PRN Q6HRS PRN IV NAUSEA/VOMITING; Start 11/26/16 at 13:45 Labetalol HCl (Normodyne) 20 mg PRN Q10MIN PRN IV HYPERTENSION, SEE COMMENTS; Start 11/27/16 at 09:00; Stop 11/28/16 at 10:50; Status DC Morphine Sulfate (Roxanol Conc) 20 mg PRN Q3HRS PRN SL PAIN Last administered on 11/28/16 16:45; Start 11/28/16 at 11:00 Lorazepam (Ativan Intensol) 2 mg PRN Q6HRS PRN SL ANXIETY / AGITATION; Start at 11:00 Scopolamine (Transderm-Scop) 1 patch Q3DAYS TD Last administered on 2/18/17at 11:07; Start 11/28/16 at 11:00 Labetalol HCl (Normodyne) 20 mg PRN Q2HR PRN IVP HYPERTENSION, SEE COMMENTS; Start 11/28/16 at 11:00 Active Scripts Active Reported Flonase Allergy Relief (Fluticasone Propionate) 9.9 Ml [place].susp 2 Sprays NS DAILY Prozac (Fluoxetine Hcl) 40 Mg Capsule 1 Cap PO DAILY Proair Hfa Inhaler (Albuterol Sulfate) 8.5 Gm Hfa.aer.ad 2 Puff IH PRN Q4-6HRS Toprol Xl (Metoprolol Succinate) 25 Mg Tab.er.24h 1 Tab PO DAILY Acetaminophen-Cod #3 Tablet (Acetaminophen/Codeine Phosphate) 1 Each Tablet 1 Tab PO AFTRNOON Famotidine 20 Mg Tablet 1 Tab PO AFTRNOON Losartan Potassium 50 Mg Tablet 50 Mg PO DAILY Alprazolam 0.5 Mg Tablet 1 Tab PO BID Vitals/I & O Vital Sign - Last 24 Hours 11/27/16 11/28/16 11/28/16 11/28/16 23:00 07:50 08:00 13:29 Temp 99.0 99.1 99.0 99.1 Pulse 58 72 Resp 20 20 B/P 186/117 154/62 Pulse Ox 97 90 90 O2 Delivery Venturi Mask Venturi Mask Venturi Mask Venturi Mask O2 Flow Rate 9.0 9.0 9.0 9.0 11/28/16 11/28/16 11/28/16 11/28/16 16:45 18:10 19:20 20:00 Temp 98.1 98.1 Pulse 131 Resp 24 B/P 115/88 Pulse Ox 90 90 94 O2 Delivery Venturi Mask Venturi Mask Room Air Room Air O2 Flow Rate 9.0 9.0 11/28/16 11/28/16 11/28/16 20:30 21:15 22:05 Pulse Ox 92 93 93 O2 Delivery Room Air Room Air Room Air Intake and Output 11/27/16 11/27/16 11/28/16 15:00 23:00 07:00 Intake Total 0 ml 0 ml Balance 0 ml 0 ml MARKOS CASILLAS MD Nov 28, 2016 22:29
[2016-11-29 03:20] VITALS: BP 145/85
[2016-11-29 06:07] VITALS: BP 144/74
[2016-11-29] MEDS: PANTOPRAZOLE IV PUSH 40 MG VIAL. IVP SCH (09:12)
--- NOTE | 2016-11-29 11:10 | PDOC ---
PROGRESS NOTES Chief Complaint Chief Complaint 1. acute left side weakness with aphasia, midline shift 2. 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 HTN 4. gerd 5. migraines 6. mild malnutrition 7. hypokalemia 8. DNR 9. Hospice 10. Lung mass vs infilatrate History of Present Illness History of Present Illness On RA and sats ok Accepted at [place] on hospice as long as not requiring high O2 requirements CXR done yesterday to assess high O2 needs show lung mass vs atelectasis vs infiltrate. COpy provided to dtr PLAN: NPO D[facility] hospice if cont to be just on RA or NC Dw rn and dtr Vitals Vitals Vital Signs Date Time Temp Pulse Resp B/P Pulse Ox O2 Delivery O2 Flow Rate FiO2 11/29/16 06:07 97.9 120 14 144/74 93 Room Air 97.9 11/28/16 18:10 9.0 Physical Exam Physical Exam closing eyes, not waking up for me Heart: Regular rate, Normal S1, Normal S2 Lungs: Clear Abdomen: Normal bowel sounds, Soft Extremities: No clubbing, No cyanosis Skin: No rashes Review of Systems Review of Systems cant be obtained - hospice, aphasic Assessment and Plan Assessmemt and Plan Problems Medical Problems: (1) Acute CVA (cerebrovascular accident) Status: Acute (2) CVA (cerebral vascular accident) Status: Acute Problems: Comment Review of Relevant I have reviewed the following items francisca (where applicable) has been applied. Labs Laboratory Tests Test 11/28/16 04:25 White Blood Count 18.1x10^3/uL (4.0-11.0) Red Blood Count 4.02x10^6/uL (3.50-5.40) Hemoglobin 11.9g/dL (12.0-15.5) Hematocrit 36.5% (36.0-47.0) Mean Corpuscular Volume 91fL (79-100) Mean Corpuscular Hemoglobin 30pg (25-35) Mean Corpuscular Hemoglobin Concent 33g/dL (31-37) Red Cell Distribution Width 13.1% (11.5-14.5) Platelet Count 239x10^3/uL (140-400) Neutrophils (%) (Auto) 89% (31-73) Lymphocytes (%) (Auto) 4% (24-48) Monocytes (%) (Auto) 7% (0-9) Eosinophils (%) (Auto) 0% (0-3) Basophils (%) (Auto) 0% (0-3) Neutrophils # (Auto) 16.0x10^3uL (1.8-7.7) Lymphocytes # (Auto) 0.7x10^3/uL (1.0-4.8) Monocytes # (Auto) 1.3x10^3/uL (0.0-1.1) Eosinophils # (Auto) 0.0x10^3/uL (0.0-0.7) Basophils # (Auto) 0.1x10^3/uL (0.0-0.2) Segmented Neutrophils % 92% (35-66) Lymphocytes % 3% (24-48) Monocytes % 5% (0-10) Platelet Estimate Adequate (ADEQUATE) Sodium Level 135mmol/L (136-145) Potassium Level 3.3mmol/L (3.5-5.1) Chloride Level 94mmol/L (98-107) Carbon Dioxide Level 29mmol/L (21-32) Anion Gap 12 (6-14) Blood Urea Nitrogen 36mg/dL (7-20) Creatinine 1.0mg/dL (0.6-1.0) Estimated GFR (Cockcroft-Gault) 52.4 Glucose Level 183mg/dL (70-99) Calcium Level 9.0mg/dL (8.5-10.1) Medications Current Medications Alteplase, Recombinant 0 ml @ 0 mls/hr 1X ONCE IV Last administered on 09:50; Start 11/26/16 at 09:30; Stop 11/26/16 at 09:31; Status DC Alteplase, Recombinant 0 ml @ 38.2 mls/hr 1X ONCE IV Last administered on 09:51; Start 11/26/16 at 09:30; Stop 11/26/16 at 09:31; Status DC Sodium Chloride (Iv Sodium Chloride 0.9% 50ml) 50 ml @ 25 mls/min ONCE STAT IV Last administered on 11/26/16 09:51; Start 11/26/16 at 09:22; Stop 11/26/16 at 09:33; Status DC Labetalol HCl 10 mg 10 mg PRN Q10MIN PRN IV HYPERTENSION, SEE COMMENTS Last administered on 11/26/16 12:15; Start 11/26/16 at 09:30; Stop 11/27/16 at 08:59 ; Status DC Nicardipine HCl/ Sodium Chloride (Cardene/Iv Sodium Chloride 0.9% 250ml) 270 ml @ 27 mls/hr CONT PRN PRN IV HYPERTENSION, SEE COMMENTS; Start 11/26/16 at 09: 30; Stop 11/28/16 at 10:50; Status DC Ondansetron HCl (Zofran) 4 mg PRN Q8HRS PRN IV NAUSEA/VOMITING; Start 11/26/16 at 09:30; Stop 11/26/16 at 15:48; Status DC Morphine Sulfate 2 mg PRN Q2HR PRN IV PAIN Last administered on 11/26/16 12:32 ; Start 11/26/16 at 12:15 Pantoprazole Sodium 40 mg 40 mg DAILYAC IVP Last administered on 11/29/16 09: 12; Start 11/26/16 at 14:00 Amino Acids/ Glycerin/ Electrolytes (Procalamine) 1,000 ml @ 60 mls/hr [id number] IV Last administered on 11/27/16 09:57; Start 11/26/16 at 13:45; Stop at 14:53; Status DC Ondansetron HCl (Zofran) 4 mg PRN Q6HRS PRN IV NAUSEA/VOMITING; Start 11/26/16 at 13:45 Labetalol HCl (Normodyne) 20 mg PRN Q10MIN PRN IV HYPERTENSION, SEE COMMENTS; Start 11/27/16 at 09:00; Stop 11/28/16 at 10:50; Status DC Morphine Sulfate (Roxanol Conc) 20 mg PRN Q3HRS PRN SL PAIN Last administered on 11/28/16 16:45; Start 11/28/16 at 11:00 Lorazepam (Ativan Intensol) 2 mg PRN Q6HRS PRN SL ANXIETY / AGITATION; Start at 11:00 Scopolamine (Transderm-Scop) 1 patch Q3DAYS TD Last administered on 2/18/17at 11:07; Start 11/28/16 at 11:00 Labetalol HCl (Normodyne) 20 mg PRN Q2HR PRN IVP HYPERTENSION, SEE COMMENTS; Start 11/28/16 at 11:00 Active Scripts Active Reported Flonase Allergy Relief (Fluticasone Propionate) 9.9 Ml [place].susp 2 Sprays NS DAILY Prozac (Fluoxetine Hcl) 40 Mg Capsule 1 Cap PO DAILY Proair Hfa Inhaler (Albuterol Sulfate) 8.5 Gm Hfa.aer.ad 2 Puff IH PRN Q4-6HRS Toprol Xl (Metoprolol Succinate) 25 Mg Tab.er.24h 1 Tab PO DAILY Acetaminophen-Cod #3 Tablet (Acetaminophen/Codeine Phosphate) 1 Each Tablet 1 Tab PO AFTRNOON Famotidine 20 Mg Tablet 1 Tab PO AFTRNOON Losartan Potassium 50 Mg Tablet 50 Mg PO DAILY Alprazolam 0.5 Mg Tablet 1 Tab PO BID Vitals/I & O Vital Sign - Last 24 Hours 11/28/16 11/28/16 11/28/16 11/28/16 13:29 16:45 18:10 19:20 Temp 98.1 98.1 Pulse 131 Resp 24 B/P 115/88 Pulse Ox 90 90 90 94 O2 Delivery Venturi Mask Venturi Mask Venturi Mask Room Air O2 Flow Rate 9.0 9.0 9.0 11/28/16 11/28/16 11/28/16 11/28/16 20:00 20:30 21:15 22:05 Pulse Ox 92 93 93 O2 Delivery Room Air Room Air Room Air Room Air 11/28/16 11/29/16 11/29/16 11/29/16 23:20 00:10 03:20 03:20 B/P 145/85 Pulse Ox 93 93 93 93 O2 Delivery Room Air Room Air Room Air Room Air 11/29/16 06:07 Temp 97.9 97.9 Pulse 120 Resp 14 B/P 144/74 Pulse Ox 93 O2 Delivery Room Air Intake and Output 11/28/16 11/28/16 11/29/16 15:00 23:00 07:00 Intake Total 0 ml 0 ml Balance 0 ml 0 ml RUBÉN GO MD Nov 29, 2016 11:10
[2016-11-29] MEDS: MORPHINE SULFATE 20 MG/ML CONC SOLUTION. SL PRN (13:54)
[2016-11-29 19:10] VITALS: BP 114/66
[2016-11-30 07:00] VITALS: BP 136/77
[2016-11-30] MEDS: PANTOPRAZOLE IV PUSH 40 MG VIAL. IVP SCH (07:51)
--- NOTE | 2016-11-30 12:25 | PDOC3 ---
Discharge Summary Visit Information Date of Admission: Nov 26, 2016 Date of Discharge: Nov 30, 2016 Admitting Diagnosis Comment: 1. acute left side weakness with aphasia, midline shift 2. 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 HTN 4. gerd 5. migraines 6. mild malnutrition 7. hypokalemia 8. DNR 9. Hospice 10. Lung mass vs infilatrate Final Diagnosis Problems Medical Problems: (1) Acute CVA (cerebrovascular accident) Status: Acute (2) CVA (cerebral vascular accident) Status: Acute Brief Hospital Course Allergies Allergies Coded Allergies Type Severity Reaction Last Updated Verified Cephalosporins Allergy Intermediate 09/29/16 Yes Penicillins Allergy Intermediate 09/29/16 Yes Sulfa (Sulfonamide Antibiotics) Allergy Intermediate 09/29/16 Yes celecoxib Allergy Intermediate 09/28/16 Yes egg Allergy Intermediate 09/28/16 Yes hydrocodone Allergy Intermediate Itching 09/28/16 Yes Vital Signs Vital Signs Date Time Temp Pulse Resp B/P Pulse Ox O2 Delivery O2 Flow Rate FiO2 11/30/16 11:00 130 93 Room Air 11/30/16 07:00 98.8 20 136/77 98.8 11/29/16 20:00 9.0 Brief Hospital Course Ms. Bryant is a 86 old female with signif CVA and mass effect, no chance of meaningful recovery, WIll go back to her [facility] ([facility] on hospice, DNR. Meds are all for comfort. Aphasic, no movement, does not recognize family anymiore disPo:[facility] hospice Proc: none COnsults: neuro plus palliative Discharge Information Condition at Discharge: Improved, Stable Disposition/Orders: D/C to Home w/ Hospice Scheduled Acetaminophen With Codeine (Acetaminophen-Cod #3 Tablet) 1 TAB PO AFTRNOON ( Reported) Albuterol Sulfate (Proair Hfa Inhaler) 2 PUFF IH PRN Q4-6HRS (Reported) Alprazolam (Alprazolam) 1 TAB PO BID (Reported) Famotidine (Famotidine) 1 TAB PO AFTRNOON (Reported) Fluoxetine Hcl (Prozac) 1 CAP PO DAILY (Reported) Fluticasone Propionate (Flonase Allergy Relief) 2 SPRAYS NS DAILY (Reported) Losartan Potassium (Losartan Potassium) 50 MG PO DAILY (Reported) Metoprolol Succinate (Toprol Xl) 1 TAB PO DAILY (Reported) RUBÉN GO MD Nov 30, 2016 12:25
--- NOTE | 2016-11-30 16:07 | PDOC ---
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 Acute left cerebellar infarct. Acute left parietal lobe infarct. S/p TPA. Cerebral edema. Metabolic encephalopathy. Ischemia encephalopathy. Lung mass? Pneumonia? HTN Skin cancer. RECOMMENDATIONS/PLAN: Palliative team consulted. Family decided for palliative care. Discussed with her daughter at bedside. SUBJECTIVE: No response. OBJECTIVE: Unresponsiveness. PAST MEDICAL AND SURGICAL HISTORY: Please see H&P ALLERGY: Unknown MEDICATIONS: Refer to MAR REVIEW OF SYSTEMS: Constitutional: No cachexia. Head: No recent traumatic brain or head injury. Skin: No edema, or rash. Ear: No infection, tinnitus. Eyes: No vision loss, or diplopia. Nose: No bleeding or purulent discharges. Hearing: Hearing loss. Neck: No injury. Breast: No history of cancer, masses, or discharges. Cardiac: HTN, HLD Pulmonary: Pneumonia. GI: No GI Ulcer, GI bleeding Urinary/genital: UTI. Endocrine: No cousin face, craniofacial dysmorphism, polydactyly. Skeletomuscular: generalized weakness. Neurological: see HP. Psychiatric: Denies drug use/abuse. Otherwise, not [id number] review of systems. PHYSICAL EXAMINATION: General appearance in acute distress. HEENT: Normocephalic and nontraumatic. Eyes, nose, ears, and throat are unremarkable. Hearing decrease. Neck is supple. No lymphadenopathy.No Crepitus. Cardiovascular: S1, S2, regular rate and rhythm. Pulmonary: Clear to auscultation bilaterally. Abdomen: Bowel sounds are positive. Extremities: No rash, lesions, or edema. No restriction of range of motion NEUROLOGICAL EXAMINATION: unresponsiveness. Not oriented to time, place and person. PERRL. EOMI not elicited. CN: Unable to access. Muscle tone: decreased. Muscle strength: minimal movements noted to pain stimuli. DTR: 1 UE, 0 at knee. Plantar reflex: Neutral response bilaterally Gait: Unable to walk. Sensory exam: Minimal response to stimuli.. Not able to access cerebellar signs. Objective Objective Vital Signs Date Time Temp Pulse Resp B/P Pulse Ox O2 Delivery O2 Flow Rate FiO2 11/30/16 11:00 130 93 Room Air 11/30/16 07:00 98.8 20 136/77 98.8 11/29/16 20:00 9.0 Intake and Output 11/30/16 07:00 Intake Total 0 ml Balance 0 ml Intake Oral 0 ml # Voids 2 Vitals Signs Vitals VS - Last 72 Hours, by Label Date Time Temp Pulse Resp B/P Pulse Ox O2 Delivery O2 Flow Rate FiO2 11/30/16 11:00 130 93 Room Air 11/30/16 07:36 Room Air 11/30/16 07:00 98.8 111 20 136/77 90 Room Air 98.8 11/30/16 03:15 90 Room Air 11/29/16 23:15 89 Room Air 11/29/16 20:00 Room Air 9.0 11/29/16 19:10 98.8 110 18 114/66 86 Room Air 98.8 11/29/16 08:00 Room Air 9.0 Comment Review of Relevant I have reviewed the following items francisca (where applicable) has been applied. JM BORREGO MD Nov 30, 2016 16:07
== END 2016-11-30 16:39 | disposition hospice, inpatient (51) | DRG 61 ==
LOC: ER 08:04 → 1 WEST ICU 09:50 → 6 SOUTH 11-27 18:53
PROVIDERS: ADMIT Internal Medicine; ATTEND Internal Medicine
DX: I63.511 Cerebral infarction due to unspecified occlusion or stenosis of right middle cerebral artery (principal); J69.0 Pneumonitis due to inhalation of food and vomit; G93.41 Metabolic encephalopathy; G93.6 Cerebral edema; J15.9 Unspecified bacterial pneumonia; J15.6 Pneumonia due to other Gram-negative bacteria; E44.1 Mild protein-calorie malnutrition; Z90.710 Acquired absence of both cervix and uterus; E87.6 Hypokalemia; E78.5 Hyperlipidemia, unspecified; G43.909 Migraine, unspecified, not intractable, without status migrainosus; I10 Essential (primary) hypertension; J44.9 Chronic obstructive pulmonary disease, unspecified; K21.9 Gastro-esophageal reflux disease without esophagitis; M81.0 Age-related osteoporosis without current pathological fracture; Z51.5 Encounter for palliative care; F32.9 Major depressive disorder, single episode, unspecified; E03.9 Hypothyroidism, unspecified; E11.9 Type 2 diabetes mellitus without complications; C44.90 Unspecified malignant neoplasm of skin, unspecified; F41.9 Anxiety disorder, unspecified; M19.90 Unspecified osteoarthritis, unspecified site; Z66 Do not resuscitate; Z82.3 Family history of stroke; Z82.49 Family history of ischemic heart disease and other diseases of the circulatory system; Z85.828 Personal history of other malignant neoplasm of skin; Z86.73 Personal history of transient ischemic attack (TIA), and cerebral infarction without residual deficits; Z90.49 Acquired absence of other specified parts of digestive tract; Z87.01 Personal history of pneumonia (recurrent); Z87.440 Personal history of urinary (tract) infections
CPT/HCPCS: 99291; C8929; 36415; 70450; 70551; 71010; 80048; 80053; 80061; 85007; 85027; 85610; 85730; 87641; 93005; 93880; 96365; C9113; J2270; J2997; J3490